=== PATIENT | female | born 1995 | race Caucasian/White ===

== ENCOUNTER 2023-11-07 01:36 | Emergency (ER) | payer OTHER, SELFPAY ==
[2023-11-07 01:47] VITALS: BP 101/53; PULSE 66; RESP 20; TEMP 36.6; O2SAT 98
--- NOTE | 2023-11-07 02:03 | ED_ITS ---
HPI - General Adult General Chief complaint: Abdominal Pain Stated complaint: lower back and pelvic cramping, 17 weeks Time Seen by Provider: 11/07/23 02:02 History of Present Illness HPI narrative: 17 weeks , starting at 2130 had what felt like period cramps in lower ab domen, back, and into groin. Went to sleep and awoke around 0030 with cramping persisting, called nurse line who advised patient to be seen. states she can feel baby move and was reassured by that. denies any bleeding or other symptoms . history of 2 miscarriages and 1 live . no recent sick contacts. 27-year-old woman presenting to the emergency department with concern of period- like cramps occurring in the lower abdomen and seems to radiate into her back, she gestures bilaterally. This began approximately 4 hours ago. She has had no bleeding. She is approximately 17 weeks with a confirmed IUP. Is noting movement. No fever. No unusual discharge. Does have a history of 2 miscarriages and 1 complete with live child. History of D&C. No fever. No dysuria. Further questioning reveals that does struggle historically with constipation. Does have some medications available but appears to have been hesitant to take them. Limited. Reports hard pellets Review of Systems Status of ROS: Reports: 6 or more systems reviewed and unremarkable except as noted in History and below [facility] Medical History Anxiety and depression ?F41.9 - Anxiety disorder, unspecified (ICD-10) ?F32.A - Depression, unspecified (ICD-10) ADHD, adult residual type ?F90.8 - Attention-deficit hyperactivity disorder, other type (ICD-10) Surgical History H/O dilation and curettage ?Z98.890 - Other specified postprocedural states (ICD-10) Social History Smoking Status: Never smoker Do you use any of these nicotine containing products: None How often do you have a drink containing alcohol: never AUDIT-C Alcohol total score: 0 Non-prescribed substance use: denies use service: No Exam Narrative: Exam Narrative: Pleasant. Directed communication. Presents quite calm but I think also understandably anxious. Breathing easily. Lungs are clear. Heart in regular rate and rhythm. Abdomen is soft with present bowel sounds. Full and generally uncomfortable through the low abdomen. No peritoneal signs. Some flank discomfort though I think this is more related to underlying sensitivity. Extremities are well perfused without edema. Const: Vital Signs, click to edit/add: Vital Signs - 24 hr 11/07/23 01:47 Temperature 97.8 F Pulse Rate [Right Pulse Oximeter] 66 Respiratory Rate 20 Blood Pressure [Le ft Upper Arm] 101/53 L Pulse Oximetry 98 Oxygen Delivery Me thod Room Air Documenting provider has reviewed patient's vital signs: yes Course Vital Signs Vital signs: Initial Vital Signs Temperature 97.8 F 11/07/23 01:47 Temperature Source Temporal Artery Scan 11/07/23 01:47 Pulse Rate 66 11/07/23 01:47 Pulse Rhythm Regular 11/07/23 01:47 Pulse Strength 3+ Normal 11/07/23 01:47 Respiratory Rate 20 11/07/23 01:47 Blood Pressure 101/53 L 11/07/23 01:47 Blood Pressure Mean 69 L 11/07/23 01:47 Blood Pressure Position Sitting 11/07/23 01:47 Pulse Oximetry 98 11/07/23 01:47 Oxygen Delivery Method Room Air 11/07/23 01:47 Vital Signs Temperature 97.8 F 11/07/23 01:47 Pulse Rate 66 11/07/23 01:47 Respiratory Rate 20 11/07/23 01:47 Blood Pressure 101/53 L 11/07/23 01:47 Pulse Oximetry 98 11/07/23 01:47 Oxygen Delivery Method Room Air 11/07/23 01:47 Temperature 97.8 F 11/07/23 01:47 Pulse Rate 66 11/07/23 01:47 Respiratory Rate 20 11/07/23 01:47 Blood Pressure 101/53 L 11/07/23 01:47 Pulse Oximetry 98 11/07/23 01:47 Oxygen Delivery Method Room Air 11/07/23 01:47 Medications Administered Medications: Discontinued Medications Generic Name Dose Route Start Last Admin Trade Name Freq PRN Reason Stop Dose Admin Glycerin 1 supp 11/07/23 03:28 11/07/23 03:39 Glycerin Supp (Adult) MD 11/07/23 03:29 Not Given ONCE ONE Medical Decision Making MDM Narrative Medical decision making narrative: Certainly could represent urinary tract infection. Does not seem to be consistent with miscarriage. Constipation with intestinal colic is definitely in differential. Symptoms not significant enough I think for ureteral stone/colic. Exam and story inconsistent I think with appendicitis. At point would check urinalysis. Ultrasound is not in house at the moment but I did offer to place bedside ultrasound for point of care evaluation. I think this could also be emotionally reassuring. Urinalysis not inconsistent with . Would wait for culture for treatment. I return with ultrasound for point of care analysis. Assess what appears to be appropriately sized fetus. Very active. Posterior good-size placenta. This all appears to be reassuring. Discussed treatment for constipation. Due to time of night/morning sent with suppository and enema. See patient discharge plan Lab Data Lab results reviewed: Yes I reviewed the patient's lab results Labs: Lab Results 11/07/23 Range/Units 02:18 Urine Color Yellow (Yellow) Urine Appearance Clear (Clear) Urine pH 6.0 (5.0-8.5) Ur Specific [place] 1.020 (1.000-1.030) Urine Protein Negative (Negative) Urine Glucose (UA) Negative (Negative) Urine Ketones Negative (Negative) Urine Blood Negative (Negative) Urine Nitrite Negative (Negative) Urine Bilirubin Negative (Negative) Urine Urobilinogen 0.2 (0.2-1.0) Ur Leukocyte Esterase 1+ A (Negative) Urine RBC 2-5 A (0-2) Urine WBC 5-10 A (0-5) Urine WBC Clumps None (None) Ur Squamous Epith Cells Few (None-Few) Amorphous Sediment Few A (None) Urine Bacteria Few A (None) Discharge Plan Discharge Clinical Impression: Abdominal pain during , Constipation Patient Disposition: Home, Self-Care Condition: Improved Additional Instructions: Continue to focus on hydration. I would consider taking your MiraLax (or equivalent) dosed 3 doses by noon, each in 8-12 oz of liquid. Or you can spread those doses out over the course of the day. I would continue this treatment for 10-14 days adjusting to stool consistency. I suppose you could take docusate sodium regularly instead after that 1st week if you prefer I think it would be a good idea for you to place a suppository yet overnight and following that with an enema in the morning. Can repeat the enema in an hour if no good result. Be seen/return for marked increase in persistent pain or pain that starts to seem like contractions of course, bleeding, repeated vomiting, fever. As you know, a urine culture is pending here. I would wait to treat for urinary tract infection pending convincing evidence in urine culture or increasing urinary tract type symptoms seeing you. Follow Up/Referrals: Provider,Not a Local [Primary Care Provider] - Stand Alone Forms: [employer] Info Instructions
[2023-11-07 03:03] LABS: Appearance Urine Clear (Clear); Bilirubin Urine Negative (Negative); Blood Urine Negative (Negative); Color Urine Yellow (Yellow); Glucose Urine Negative (Negative); Ketones Urine Negative (Negative); Leukocyte Esterase Urine 1+ (Negative); Nitrite Urine Negative (Negative); Protein Urine Negative (Negative); Urobilinogen Urine 0.2 (0.2-1.0)
[2023-11-07 03:09] LABS: Amorphous Sediment Urine Few; Bacteria Urine Few; Squamous Epithelial Cell Urine Few (None-Few)
--- NOTE | 2023-11-07 03:39 | PC.NURSE ---
glycerin suppository sent home with patient per protocol, see EMAR for charting
--- NOTE | 2023-11-07 03:49 | PC.NURSE ---
fleets enema sent home with patient per MD instructions, patient verbalized understanding of use. DC instructions gone over with patient and she has no further questions. patient DC ambulatory with pain controlled. all belongings sent home with patient
== END 2023-11-07 03:53 | disposition home or self-care (01) ==
PROVIDERS: Emergency Provider Family Medicine
DX: R10.30 Lower abdominal pain, unspecified (principal); K59.00 Constipation, unspecified; Z3A.17 17 weeks gestation of pregnancy
CPT/HCPCS: 81001; 87086; 99283; 99284

== ENCOUNTER 2024-11-25 16:49 | Emergency (ER) | payer OTHER, SELFPAY ==
--- OUTSIDE RECORDS SUMMARY | 2024-11-25 16:52 | XMS_ITS | Clinical Summary ---
Author Organization [facility] Address [address] [address] Care Team Providers Care Anthropological Linguist Name Role Phone Rick Correia MD Primary Care Provider [phone] Source Comments You are receiving this document as you are listed as the primary care provider,follow-up provider, or the patient has been referred to you for consultation.This is in compliance with the Medicare and[facility] E[facility] Incentive [facility],which states Providers who transition their patient to another setting of careor provider of care or refers their patient to another provider of care shouldprovide summary care record for each transition of care or referral. [employer] Allergies No known active allergies Medications Medication Sig Dispensed Refills Start Date End Date Status drug not in computerIndicatio ns:Lactating mother Breast pump for home use. 1 Each 4 Active escitalopram oxalate (LEXAPRO) 20 MG tabletIndications :Anxiety (HRC) Take 1 Tablet (20 mg) by mouth daily. 90 Tablet 1 4 Active busPIRone (BUSPAR) 5 MG tabletIndications :Anxiety (HRC) Take 1 Tablet (5 mg) by mouth two times a day. 180 Tablet 1 4 Active VYVANSE 30 MG capsuleIndication s:Attention deficit hyperactivity disorder (ADHD), combined type, mild (HRC) Take 1 Capsule (30 mg) by mouth daily. Brand Name 30 Capsule 5 Active lisdexamfetamine (VYVANSE) 30 MG capsuleIndication s:Attention deficit hyperactivity disorder (ADHD), combined type, mild (HRC) Take 1 Capsule (30 mg) by mouth daily. 30 Capsule 4 11/20/19 25 Discontinued(*M ed change OR same med OR reorder, new dose/directions ) lisdexamfetamine (VYVANSE) 30 MG capsuleIndication s:Attention deficit hyperactivity disorder (ADHD), combined type, mild (HRC) Take 1 Capsule (30 mg) by mouth every morning. Appointment due with Dr. New, please call [phone] to schedule a visit for refills in future. 30 Capsule 5 11/23/19 25 Discontinued lisdexamfetamine (VYVANSE) 30 MG capsuleIndication s:Attention deficit hyperactivity disorder (ADHD), combined type, mild (HRC) Take 1 Capsule (30 mg) by mouth daily. Brand Name 30 Capsule 5 11/23/19 25 Discontinued Active Problems Problem Noted Date Diagnosed Date Mood disorder 09/14/2024 Attention deficit hyperactiv ity disorder (ADHD), combined type, mild 09/14/2024 Adjustment disorder 09/14/2024 Self-excoriation disorder 09/14/2024 Irregular bowel habits 09/12/2024 Encounter for supervision of normal in multigravida 11/19/2023 Migraine with aura and witho ut status migrainosus, not intractable 12/07/2022 History of recurrent miscarriages 10/22/2021 Anxiety 10/22/2021 Resolved Problems Problem Noted Date Diagnosed Date Resolved Date Excessive weight gain affecting 03/12/2022 11/19/2023 Careplan: [facility] 01/09/2022 04/07/2022 Overview (01/09/2022): This patient is enrolled in the [facility] Program. The program provides patients with support, education, referrals and resources during their . Reason for enrollment: Mental health resources as needed For more information, please contact Sahra Llanos, [facility] Specialist, at [phone]. Supervision of high-risk 10/22/2021 11/19/2023 Blood type A+ 10/22/2021 11/03/2023 Heartburn 10/22/2021 11/19/2023 Encounters Date Type Department Care Team Description 11/08/2024 Notes/Orders [place] [address] [facility] [address] [place] [phone] Imani Hollis PA-C Encounter for screening for other disorder (Primary Dx) 09/12/2024 8:03 AM DIRECTOR OF REGULATORY AFFAIRS - 09/12/2024 11:59 PM DIRECTOR OF REGULATORY AFFAIRS Hospital Encounter Gastroenterology Procedures at [facility] [address] [address] [place] [address] Genna Fair APRN, CNP Quinn, Kevin P, MD Irregular bowel habits (Primary Dx) Discharge Disposition: Home 09/08/2024 1:50 PM DIRECTOR OF REGULATORY AFFAIRS Lab Visit [place] [facility] [address] [place] [phone] Dizziness; Irregular bowel habits 09/08/2024 1:00 PM DIRECTOR OF REGULATORY AFFAIRS Office Visit [place] [address] [facility] [address] [place] [phone] Genna Fair APRN, MANAGER [employer]ARD[employer] Acute bilateral low back pain without sciatica (Primary Dx); Umbilical hernia without obstruction or gangrene; Bilateral hip pain; Dizziness; Irregular bowel habits 09/08/2024 Notes/Orders Dig[facility] Care at [facility] at [address] [place] [address] Jimmy Collier MD 09/08/2024 E-Visit Endoscopy at [address] [place] [address] Mychart, Generic Provider from Last 3 Months Immunizations Name Administration Dates Next Due Influenza (Flucelvax), Preserv Free QIV 12/10/19 24 Influenza IIV4 (Quadrivalent) 0.5mL (71883) 04/2023,10/21/2021 Influenza ccIIV3 6 months+ (Flucelvax) 4 Moderna Monovalent 12+ 11/08/2021 Tdap 02/04/2024,12/17/2021 Family History Medical History Relation Name Comments Depression Father Heart Disease Father Hypertension Father Mental Disorder Father Stroke Father Depression Mother Heart Disease Mother Mental Disorder Mother Stroke Mother uterine Mother uterine bleedin g had to have hysterectomy Anxiety Brother 1 older of the brothers Depression Brother 1 older of the brothers Arthritis Maternal Grandmother COPD Maternal Grandmother Cancer Maternal Grandmother Depression Maternal Grandmother disc Maternal Grandmother digenar tive disc Alcohol Abuse Paternal Grandfather COPD Paternal Grandfather Heart Disease Paternal Grandfather Relation Name Status Comments Father Alive Mother Alive Brother 1 older of the brothers Alive Brother 2 younger of the brothers Alive Brother 3 Maternal Grandfather Maternal Grandmother Paternal Grandfather Alive Paternal Grandmother Alive Social History Tobacco Use Types Packs/Day Years Used Date Smoking Tobacco: Never Passive Smoke Exposure: Never Smokeless Tobacco: Never Tobacco Cessation:Counseling Given: Not Answered Alcohol Use Standard Drinks/Week Comments Yes 0 (1 standard drink = 0.6 oz pur e alcohol) occ PHQ-2 Answer Date Recorded PHQ-2 Score 2 10/19/2024 Depression Answer Date Recor ded Last EPDS Total Score 5 11/08/2024 Last EPDS Self Harm Result 0-->never 11/08 Sex and Gender Information Value Date Recorded Sex Assigned at Not on file Gender Identity Not on file Sexual Orientation Not on file Last Filed Vital Signs Vital Sign Reading Time Taken Comments Blood Pressure 105/60 09/12/2024 9:30 AM DIRECTOR OF REGULATORY AFFAIRS Pulse 50 09/12/2024 9:40 AM DIRECTOR OF REGULATORY AFFAIRS Temperature 36.4 C (97.6 F) 12/07/2022 3:20 PM DIRECTOR OF REGULATORY AFFAIRS Respiratory Rate 16 09/12/2024 9:40 AM DIRECTOR OF REGULATORY AFFAIRS Oxygen Saturation 99% 09/12/2024 9:40 AM DIRECTOR OF REGULATORY AFFAIRS Inhaled Oxygen Concentration - - Weight 54.4 kg (120 lb) 09/12/2024 8:09 AM DIRECTOR OF REGULATORY AFFAIRS Height 154.9 cm (5' 1) 09/12/2024 8:09 AM DIRECTOR OF REGULATORY AFFAIRS Body Mass Index 22.67 09/12/2024 8:09 AM DIRECTOR OF REGULATORY AFFAIRS Plan of Treatment Health Maintenance Due Date Last Done Comments Adult Preventive Visit 2013 HepB (1) 2014 COVID-19 Vaccine ( season) 2024 11/08/2021 Cervical Cancer Screening 05/12/2025 05/12/2022 DTaP/Tdap/Td (3 - Tdap) 02/03/2034 02/04/2024, 12/17 Zoster/Shingles (1 of 2) 2045 Chlamydia Discontinued 10/21/2021 HIV Screening (Preventive Services) Completed 01/14/2024, 08/27/2021 Hep C Screening (Preventive Services) Completed 01/14/2024, 10/21/2021 Influenza Completed 09/08/2024, 07/2024, 12/07/2022, Additional history exists HPV Vaccine Aged Out No longer eligi ble based on patient's age to complete this topic HepA Aged Out No longer eligi ble based on patient's age to complete this topic Hib Aged Out No longer eligi ble based on patient's age to complete this topic IPV (Polio) Aged Out No longer eligi ble based on patient's age to complete this topic MCV4 Aged Out No longer eligi ble based on patient's age to complete this topic Pneumococcal Aged Out No longer eligi ble based on patient's age to complete this topic Procedures Procedure Name Priority Date/Time Associated Diagnosis Comments SURGICAL PATHOLOGY, GI Routine 4 9:01 AM DIRECTOR OF REGULATORY AFFAIRS Irregular bowel habits COLONOSCOPY DIAGNOSTIC Routine 4 8:18 AM DIRECTOR OF REGULATORY AFFAIRS Irregular bowel habits POCT URINE Routine 09/12/2024 8:16 AM DIRECTOR OF REGULATORY AFFAIRS Irregular bowel habits COMPREHENSIVE METABOLIC PANEL Routine 09/08/2024 1:36 PM DIRECTOR OF REGULATORY AFFAIRS Irregular bowel habits TISSUE TRANSGLUTAMINASE AB IGA Routine 09/08/2024 1:36 PM DIRECTOR OF REGULATORY AFFAIRS Irregular bowel habits TSH, SENSITIVE Routine 09/08/2024 1:36 PM DIRECTOR OF REGULATORY AFFAIRS Dizziness COMPLETE BLOOD COUNT-NO DIFF Routine 09/08/2024 1:36 PM DIRECTOR OF REGULATORY AFFAIRS Dizziness HIV 1/2 AG/AB 4TH GEN Routine 01/14/2024 2:13 PM CDT Supervision of high risk in second trimester HEPATITIS C ANTIBODY, WITH REFLEX Routine 01/14/2024 2:13 PM CDT Supervision of high risk in second trimester PAP TEST Routine 05/12/2022 10:38 AM CDT Screening for malignant neoplasm of cervix examination following vaginal delivery CHLAMYDIA & GC, URINE (14 YEARS AND OLDER) Routine 10/21/2021 12:45 PM DIRECTOR OF REGULATORY AFFAIRS Supervision of high risk in second trimester History of recurrent miscarriages from Last 3 Months or Most Recently Relevant to Health Maintenance Results * Surgical Path - GI (09/12/2024 9:01 AM DIRECTOR OF REGULATORY AFFAIRS) Case Report Surgical Pathology Case: [id number] Authorizing Provider: Jimmy Collier MD Collected: 09/12/2024 0901 Ordering Location: Gastroenterology Received: 09/12/2024 1620 Procedures at [facility] [address] [facility] Pathologist: Petr Driscoll MD Specimen: Colon, random 09/18/2024 2:24 PM DIRECTOR OF REGULATORY AFFAIRS [facility] FINAL DIAGNOSIS A. Colon, random, biopsy: No diagnostic abnormality 09/18/2024 2:24 PM DIRECTOR OF REGULATORY AFFAIRS [facility] Clinical Information Irregular bowel habits 09/18/2024 2:24 PM DIRECTOR OF REGULATORY AFFAIRS [facility] Microscopic Description Microscopic examination is performed. 09/18/2024 2:24 PM DIRECTOR OF REGULATORY AFFAIRS [facility] Gross Description A: The specimen is received in formalin and labeled with the patient's name and Colon, random. The specimen consists of multiple gill-white irregular soft tissue fragments, ranging from 0.1 cm to 0.2 cm. The specimen is filtered and entirely submitted in one cassette. AW 09/18/2024 2:24 PM DIRECTOR OF REGULATORY AFFAIRS [facility] Embedded Images 09/18/2024 2:24 PM DIRECTOR OF REGULATORY AFFAIRS [facility] Tissue COLON STRUCTURE / Unknown 09/12/2024 9:01 AM DIRECTOR OF REGULATORY AFFAIRS 09/12/2024 4:20 PM DIRECTOR OF REGULATORY AFFAIRS Jimmy Collier MD LAB PATHOLOGY [facility] [address] * Colonoscopy Diagnostic (09/12/2024 8:18 AM DIRECTOR OF REGULATORY AFFAIRS) Anatomical Region Laterality Modality Other 09/12/2024 8:18 AM DIRECTOR OF REGULATORY AFFAIRS Narrative 09/12/2024 8:18 AM DIRECTOR OF REGULATORY AFFAIRS Patient Name: Patty Fuentes Procedure Date: 09/12/2024 8:18 AM Date of : 1995 Admit Type: Outpatient Age: 28 Note Status: Finalized Attending MD: Jimmy Collier MD, Procedure: Colonoscopy Indications: Rectal bleeding, Constipation, Diarrhea Providers: Jimmy Collier MD, Ravinder Mckoy Patient Profile: 28 year old woman undergoing evaluation for the above. She goes 5-7 days without a BM, then 1-2 days with diarrhea. This is associated with intermittent rectal bleeding and abdominal cramping. No known family history of colon cancer. Referring MD: Genna Mao Medicines: Midazolam 4 mg IV, Fentanyl 150 micrograms IV, Oxygen 2 L/min Complications: No immediate complications. Estimated blood loss: Minimal. Procedure: After I obtained informed consent, the scope was passed under direct vision. Throughout the procedure, the patient's blood pressure, pulse, and oxygen saturations were monitored continuously. The PCF-H190L Colonoscope was introduced through the anus and advanced to 8 cm into the ileum. The colonoscopy was performed with difficulty due to the patient's excessive discomfort during the procedure. Successful completion of the procedure was aided by increasing the dose of sedation medication. The patient tolerated the procedure fairly well. The quality of the bowel preparation was evaluated using the BBPS (Keller Bowel Preparation Scale) with scores of: Right Colon = 3, Transverse Colon = 3 and Left Colon = 3 (entire mucosa seen well with no residual staining, small fragments of stool or opaque liquid). The total BBPS score equals 9. The terminal ileum, ileocecal valve, appendiceal orifice, and rectum were photographed. Findings: The perianal and digital rectal examinations were normal. The terminal ileum appeared normal. Normal mucosa was found in the entire colon. Biopsies for histology were taken with a cold forceps for evaluation of microscopic colitis. Verification of patient identification for the specimen was done using the patient's name and date. Estimated blood loss was minimal. Non-bleeding internal hemorrhoids were found during retroflexion. The hemorrhoids were mild. The exam was otherwise without abnormality on direct and retroflexion views. Moderate Sedation: Moderate (conscious) sedation was administered by the nurse and supervised by the endoscopist. The following parameters were monitored: oxygen saturation, heart rate, blood pressure, and response to care. Total physician intraservice time was 19 minutes. This time is the duration from the initial medication administration until the orchestra musician assists with initial maneuvers (biopsy / polypectomy / etc.), or if no maneuvers are performed, until the endoscopist leaves the room. Impression: - Internal hemorrhoids are the likely cause for the patient's intermittent rectal bleeding. No other abnormalities noted. Random biopsies obtained to be thorough. However, symptoms are most consistent with chronic constipation (likely constipation-predominant irritable bowel syndrome) with intermittent overflow diarrhea. - The examined portion of the ileum was normal. - Normal mucosa in the entire examined colon. Biopsied. - Non-bleeding internal hemorrhoids. - The examination was otherwise normal on direct and retroflexion views. Recommendation: - Discharge patient to home. - High fiber diet. - Miralax 1 capful (17 grams) in 8 ounces of water PO daily. - Await pathology results. - Repeat colonoscopy at age 45 for screening purposes. - Future colonoscopies should be performed with propofol. - Return to referring provider PRN. - The findings and recommendations were discussed with the patient. Procedure Code(s): --- Professional --- 36980, Colonoscopy, flexible; with biopsy, single or multiple G0500, Moderate sedation services provided by the same physician or other qualified health day care provider performing a gastrointestinal endoscopic service that sedation supports, requiring the presence of an independent trained observer to assist in the monitoring of the patient's level of consciousness and physiological status; initial 15 minutes of intra-service time; patient age 5 years or older (additional time may be reported with 76571, as appropriate) Diagnosis Code(s): --- Professional --- K64.8, Other hemorrhoids K62.5, Hemorrhage of anus and rectum K59.00, Constipation, unspecified R19.7, Diarrhea, unspecified CPT copyright 2021 [employer]. All rights reserved. The codes documented in this report are preliminary and upon supervisor grips review may be revised to meet current compliance requirements. Jimmy Collier MD 09/12/2024 9:14:33 AM Number of Addenda: 0 Note Initiated On: 09/12/2024 8:18 AM Endoscopy Report Procedure Note Jimmy Collier MD - 09/12/2024 Patient Name: Patty Fuentes Procedure Date: 09/12/2024 8:18 AM Date of : 1995 Admit Type: Outpatient Age: 28 Note Status: Finalized Attending MD: Jimmy Collier MD, Procedure: Colonoscopy Indications: Rectal bleeding, Constipation, Diarrhea Providers: Jimmy Collier MD, Ravinder Mckoy Patient Profile: 28 year old woman undergoing evaluation for the above. She goes 5-7 days without a BM, then 1-2 days with diarrhea. This is associated with intermittent rectal bleeding and abdominal cramping. No known family history of colon cancer. Referring MD: Genna Mao Medicines: Midazolam 4 mg IV, Fentanyl 150 micrograms IV, Oxygen 2 L/min Complications: No immediate complications. Estimated blood loss: Minimal. Procedure: After I obtained informed consent, the scope was passed under direct vision. Throughout the procedure, the patient's blood pressure, pulse, and oxygen saturations were monitored continuously. The PCF-H190L Colonoscope was introduced through the anus and advanced to 8 cm into the ileum. The colonoscopy was performed with difficulty due to the patient's excessive discomfort during the procedure. Successful completion of the procedure was aided by increasing the dose of sedation medication. The patient tolerated the procedure fairly well. The quality of the bowel preparation was evaluated using the BBPS (Keller Bowel Preparation Scale) with scores of: Right Colon = 3, Transverse Colon = 3 and Left Colon = 3 (entire mucosa seen well with no residual staining, small fragments of stool or opaque liquid). The total BBPS score equals 9. The terminal ileum, ileocecal valve, appendiceal orifice, and rectum were photographed. Findings: The perianal and digital rectal examinations were normal. The terminal ileum appeared normal. Normal mucosa was found in the entire colon. Biopsies for histology were taken with a cold forceps for evaluation of microscopic colitis. Verification of patient identification for the specimen was done using the patient's name and date. Estimated blood loss was minimal. Non-bleeding internal hemorrhoids were found during retroflexion. The hemorrhoids were mild. The exam was otherwise without abnormality on direct and retroflexion views. Moderate Sedation: Moderate (conscious) sedation was administered by the nurse and supervised by the endoscopist. The following parameters were monitored: oxygen saturation, heart rate, blood pressure, and response to care. Total physician intraservice time was 19 minutes. This time is the duration from the initial medication administration until the orchestra musician assists with initial maneuvers (biopsy / polypectomy / etc.), or if no maneuvers are performed, until the endoscopist leaves the room. Impression: - Internal hemorrhoids are the likely cause for the patient's intermittent rectal bleeding. No other abnormalities noted. Random biopsies obtained to be thorough. However, symptoms are most consistent with chronic constipation (likely constipation-predominant irritable bowel syndrome) with intermittent overflow diarrhea. - The examined portion of the ileum was normal. - Normal mucosa in the entire examined colon. Biopsied. - Non-bleeding internal hemorrhoids. - The examination was otherwise normal on direct and retroflexion views. Recommendation: - Discharge patient to home. - High fiber diet. - Miralax 1 capful (17 grams) in 8 ounces of water PO daily. - Await pathology results. - Repeat colonoscopy at age 45 for screening purposes. - Future colonoscopies should be performed with propofol. - Return to referring provider PRN. - The findings and recommendations were discussed with the patient. Procedure Code(s): --- Professional --- 22091, Colonoscopy, flexible; with biopsy, single or multiple G0500, Moderate sedation services provided by the same physician or other qualified health day care provider performing a gastrointestinal endoscopic service that sedation supports, requiring the presence of an independent trained observer to assist in the monitoring of the patient's level of consciousness and physiological status; initial 15 minutes of intra-service time; patient age 5 years or older (additional time may be reported with 15725, as appropriate) Diagnosis Code(s): --- Professional --- K64.8, Other hemorrhoids K62.5, Hemorrhage of anus and rectum K59.00, Constipation, unspecified R19.7, Diarrhea, unspecified CPT copyright 2021 [employer]. All rights reserved. The codes documented in this report are preliminary and upon supervisor grips review may be revised to meet current compliance requirements. Jimmy Collier MD 09/12/2024 9:14:33 AM Number of Addenda: 0 Note Initiated On: 09/12/2024 8:18 AM Endoscopy Report Genna Fair APRN, CNP ET GI PROCEDURE ORDERABLES * Urine POCT (Unit Collect & Test) (09/12/2024 8:16 AM DIRECTOR OF REGULATORY AFFAIRS) Urine Test - POC Negative Negative POCT Control Line Present, Clear Background - Internal control Yes POCT Cartridge Lot# [id number] POCT Comment:02/06/26 Urine 09/12/2024 8:16 AM DIRECTOR OF REGULATORY AFFAIRS Jimmy Collier MD ET POINT OF CARE JOSSELIN T ENTER/EDIT ORDERABLES POCT * Tissue Transglutaminase Ab IgA (09/08/2024 1:36 PM DIRECTOR OF REGULATORY AFFAIRS) Tissue Transglutaminase Antibody, IgA 0.3 0.0 - 6.9 U/mL 09/12/2024 10:04 AM DIRECTOR OF REGULATORY AFFAIRS [facility] Tissue Transglutaminase Antibody, IgA Interpretation Negative Negative 09/12/2024 10:04 AM DIRECTOR OF REGULATORY AFFAIRS [facility] Blood Venipuncture / Unknown 09/08/2024 1:36 PM DIRECTOR OF REGULATORY AFFAIRS 09/08/2024 1:36 PM DIRECTOR OF REGULATORY AFFAIRS Genna Fair APRN, CNP LAB_1 [facility] [address] * (ABNORMAL) Comp Metabolic Panel (09/08/2024 1:36 PM DIRECTOR OF REGULATORY AFFAIRS) Sodium 141 136 - 145 mmol/L 09/08/2024 5:26 PM DIRECTOR OF REGULATORY AFFAIRS [facility] Potassium 3.6 3.5 - 5.1 mmol/L 09/08/2024 5:26 PM [facility] Chloride 107 98 - 109 mmol/L 09/08/2024 5:26 PM [facility] CO2 24 20 - 29 mmol/L 09/08/2024 5:26 PM [facility] Anion Gap 10 6 - 16 mmol/L 09/08/2024 5:26 PM [facility] Calcium 9.6 8.4 - 10.4 mg/dL 09/08/2024 5:26 PM [facility] BUN 9 7 - 26 mg/dL 09/08/2024 5:26 PM [facility] Creatinine 0.69 0.55 - 1.02 mg/dL 09/08/2024 5:26 PM [facility] Alkaline Phosphatase 61 40 - 150 U/L 09/08/2024 5:26 PM [facility] AST (SGOT) 20 10 - 40 U/L 09/08/2024 5:26 PM [facility] ALT (SGPT) 14 <=55 U/L 09/08/2024 5:26 PM [facility] Bilirubin, Total 0.5 0.2 - 1.2 mg/dL 09/08/2024 5:26 PM [facility] Protein, Total 7.2 6.4 - 8.3 g/dL 09/08/2024 5:26 PM [facility] Albumin 4.1 3.5 - 5.0 g/dL 09/08/2024 5:26 PM [facility] Glucose 66(L) 70 - 100 mg/dL 09/08/2024 5:26 PM [facility] Comment:The given reference range is for the fasting state. Non-fasting reference range for glucose is 70 - 180 mg/dL. GFR, Estimated >60 >60 mL/min/1.7 3m2 09/08/2024 5:26 PM [facility] Hours Fasting 0.0 8 - 12 Hours 09/08/2024 5:26 PM [facility] Blood Venipuncture / Unknown 09/08/2024 1:36 PM DIRECTOR OF REGULATORY AFFAIRS 09/08/2024 1:36 PM [facility] Genna Fair DEPARTMENT OF NATURAL RESOURCES OFFICER, MANAGER GARDEN LAB_1 [facility] [address] [place] [phone] * TSH (09/08/2024 1:36 PM DIRECTOR OF REGULATORY AFFAIRS) Pathologist [facility] TSH, Sensitive 0.40 0.30 - 4.50 uIU/mL 09/08/2024 6:47 PM DIRECTOR OF REGULATORY AFFAIRS [facility] Blood Venipuncture / Unknown 09/08/2024 1:36 PM DIRECTOR OF REGULATORY AFFAIRS 09/08/2024 1:36 PM DIRECTOR OF REGULATORY AFFAIRS Genna Fair APRN, MANAGER [employer]ARD[employer] LAB_1 [facility] [address] [place], [place] [id number] [place], [place] [address] * Complete Blood Count-No Diff (09/08/2024 1:36 PM DIRECTOR OF REGULATORY AFFAIRS) [facility] WBC 6.2 3.5 - 10.5 x10(9)/L 09/08/2024 1:44 PM [facility] RBC 4.67 3.90 - 5.03 x10(12)/L 09/08/2024 1:44 PM [facility] Hemoglobin 14.0 12.0 - 15.5 g/dL 09/08/2024 1:44 PM [facility] HCT 41.1 34.9 - 44.5 % 09/08/2024 1:44 PM [facility] MCV 88.0 80.0 - 100.0 fL 09/08/2024 1:44 PM [facility] MCH 30.0 27.6 - 33.3 pg 09/08/2024 1:44 PM [facility] MCHC 34.1 31.5 - 35.2 g/dL 09/08/2024 1:44 PM [facility] RDW 11.9 11.9 - 15.5 % 09/08/2024 1:44 PM [facility] Platelets 192 150 - 450 x10(9)/L 09/08/2024 1:44 PM [facility] Blood Venipuncture / Unknown 09/08/2024 1:36 PM DIRECTOR OF REGULATORY AFFAIRS 09/08/2024 1:36 PM DIRECTOR OF REGULATORY AFFAIRS Genna Fair APRN, CNP LAB_1 Performing Organization Address City/Va Hospital/ZIP Co de Phone Number [facility] [address] [place] [address] * HIV 1/2 Ag/Ab 4th Generation (01/14/2024 2:13 PM CDT) HIV 1/2 Antigen/Antib alba (4th generation) Negative (Non Reactive) Negative (Non Reactive) 01/14/2024 8:37 PM CDT [facility] Comment:HIV-1 p24 Antigen an d HIV-1/HIV-2 Antibody not detected Blood Venipuncture / Unknown 01/14/2024 2:13 PM CDT 01/14/2024 2:13 PM CDT Zaynab Redding MD LAB_1 Performing Organization Address [facility] Hospital/[facility] Co de Phone Number [facility] [address] * Hepatitis C Antibody, with Reflex (01/14/2024 2:13 PM CDT) Hepatitis C Antibody Negative (Non Reactive) Negative (Non Reactive) 01/14/2024 8:37 PM CDT [facility] Comment:Antibodies to HCV no t detected. Does not exclude the possiblity of exposure to HCV. Blood Venipuncture / Unknown 01/14/2024 2:13 PM CDT 01/14/2024 2:13 PM CDT Zaynab Redding MD LAB_1 Performing Organization Address City/Va Hospital/ZIP Co de Phone Number [facility] [address] [employer] [address] * PAP Test (05/12/2022 10:38 AM CDT) Case Report Pap Case: [id number] Authorizing Provider: Josey Richard MD Collected: 05/12/2022 1038 Ordering Location: [place] [address] Received: 05/12/2022 1255 Obstetrics/Gynec ology First Screen: Meme Connor CT (ASCP) Specimen: Pap Test, Routine, Cervix/Endocervix 05/19/2022 2:27 PM CDT [facility] Pap Specimen Adequacy Satisfactory for evaluation, endocervical/machado sformation zone component present. 05/19/2022 2:27 PM CDT [facility] Pap Interpretation (NILM) Negative for intraepithelial lesion or malignancy. 05/19/2022 2:27 PM CDT [facility] Pap Disclaimer The Pap test is a screening test designed to aid in the detection of cervical cancer and its precursor lesions. It is not a diagnostic procedure and should not be used as the sole means of detecting cervical cancer. Both false-positive and false-negative results may occur. 05/19/2022 2:27 PM CDT [facility] Gross Description The specimen is received in SurePath fixative and properly labeled. 1 Pap-stained SurePath slide is prepared. 05/19/2022 2:27 PM CDT [facility] Embedded Images 2:27 PM CDT [facility] Other Specimen Type ENTIRE ENDOCERVIX / Unknown 05/12/2022 10:38 AM CDT 05/12/2022 12:55 PM CDT Comment:LMP: Patient's last menstrual period was 06/17/2021 (exact date). Josey Richard MD LAB PATHOLOGY Performing Organization Address City/State/[facility] de Phone Number [facility] [address] * Chlamydia and GC, Urine STD (10/21/2021 12:45 PM DIRECTOR OF REGULATORY AFFAIRS) Chlamydia Trachomatis STD Not Detected Not Detected 10/22/2021 9:06 AM DIRECTOR OF REGULATORY AFFAIRS [facility] N. gonorrhoeae STD Not Detected Not Detected 10/22/2021 9:06 AM DIRECTOR OF REGULATORY AFFAIRS [facility] Urine STD (Urine for STD) Non-blood Collection / Unknown 10/21/2021 12:45 PM DIRECTOR OF REGULATORY AFFAIRS 10/21/2021 12:45 PM DIRECTOR OF REGULATORY AFFAIRS Narrative [facility] - 10/22/2021 9:06 AM DIRECTOR OF REGULATORY AFFAIRS Test performed by Gel Coater Mediated Amplification (TMA). Josey Richard MD LAB_1 [facility] [address] [address], [place] [phone] from Last 3 Months or Most Recently Relevant to Health Maintenance Care Teams Anthropological Linguist Relationship Specialty Start Date End Date Rick Correia MD [address] [place] [address] PCP - General Internal Medicine 10/21/21
--- OUTSIDE RECORDS SUMMARY | 2024-11-25 16:52 | XMS_ITS ---
Author Organization [facility] Address [address] [place] [address] Care Team Providers Care Stars Coordinator Name Role Phone Rick Correia Primary Care Provider Daisy Malonye [phone] Allergies No Known Allergies REASON FOR VISIT 16wks, card given., mc Medications Medication SIG (Take, Route, Frequency, Duration) Notes Start Date End Date Status Active Lexapro 20 MG 1 tablet Orally Once a day Active Melatonin Active Social History Tobacco Use: Social History Observation Description Date Details (start date - stop date) Never Smoker NA - NA Tobacco Use/Smoking Question Answer Notes Are you a nonsmoker Alcohol Screen (Audit-C) Question Answer Notes Did you have a drink containing alcohol in the p ast year? Yes Points 0 Interpretation Negative Encounters Encounter Location Date Provider Diagnosis [facility] [address] [place] [address] 10/29/2023 Daisy Oakley Plan Of Treatment No Information Progress Notes * VALDEMARPatty FLORES ADOB: [birth year] (28 yo F)Acc No.[id number]:10/29/2023 Progress Note Patient: Patty ZACARIAS Provider: Norma Oakley CNM :1995 A ge:27 Y S ex:Female Date:10/29/2023 Address:[facility] [place] Pcp:Rick Correia Subjective: * Chief Complaints: * 1 . 16wks. 2. card given.. 3. Mc. * Medical History: M igraines, Depression/Anxiety, Ovarian Cysts, Uterine Fibroids, : yes. * Registered Nurse Supervisor History: D ate of Last Period: C urrently 07/09/23. B irth Control: C urrently . S exual Activity C urrently sexually active. S exually Tranmitted Disease (STD)?None. A bnormal Pap Smear N ever Had One. * OB History: G PAL: G [id number]. P regnancy # 1: 2 020, Miscarriage (SAB), dilatation and curettage (D/C), 8wks. P regnancy # 2: 2 021, 6wks, Miscarriage (SAB), dilatation and curettage (D/C). P regnancy # 3: 2 022, Female, normal spontaneous vaginal delivery (), 39wks. P regnancy # 4: 2 023, currently . G P G ravida: 0 07/09/2023. * Surgical History: T onsils Removal 2001, D&C 2019, D&C 2020, [place] Tooth Removal 2022. * Hospitalization/Major Diagno stic Procedure: D enies Past Hospitalization. * Family History: M other: diagnosed with Heart Disease. F ather: diagnosed with Hypertension, Heart Disease. * Social History: T obacco Use: T obacco Use/Smoking A re you a n onsmoker. D rugs/Alcohol: D rugs H ave you used drugs other than those for medical reasons in the past 12 months?? None.. A lcohol Screen (Audit-C) D id you have a drink containing alcohol in the past year? Y es, P oints 0 , I nterpretation N egative. C affeine I ntake: 1 soda daily.. D o you smoke marijuana?: Denies. Do you drink alcohol?: 1-2x month.. * Medications: T aking Melatonin , Taking , Taking Lexapro 20 MG Tablet 1 tablet Orally Once a day , Medication List reviewed and reconciled with the patient * Allergies: N .K.D.A. Objective: * Vitals: Assessment: Plan: * Treatment: * Preventive Medicine: YOUR PREVENTIVE WELLNESS PLAN: B reast Cancer Screening (Mammogram): M y last mammogram was done on: N ever. C akashal Cancer Screening (Pap Smear): M y last Pap smear was done on: 0 11/01/2021 Normal, per pt. O steoporosis Screening (Bone Density Measurement): M y last bone density was done on: N ever. C olorectal Cancer Screening: L ast Done Colonoscopy N ever. D epression Screening: S creening for depression was last done on:?09/02/2023. * Images: Billing Information: * Visit Code: * Procedure Codes: * Electronic signature of Maria G Oakley CNM on 11/25/2024 at 04:52 PM CLEAT FEEDER Sign off status: Pending * Provider: Norma Oakley CNM Date: Generated for Deloris powell/Elena/Gianni on: 0 11/25/2024 04:52 PM CLEAT FEEDER
--- OUTSIDE RECORDS SUMMARY | 2024-11-25 16:52 | XMS_ITS | Clinical Summary ---
Author Organization [facility] Address [address] [place] [address] Care Team Providers Care Forestry Aid Technician Name Role Phone Clinic, [facility] Pro vider Allergies No known active allergies Medications escitalopram (LEXAPRO) 10 MG tablet Take 20 mg by mouth daily Active Vit-Fe Fumarate-FA ( MULTIVITAMIN W/IRON) 27-0.8 MG tablet Take 1 tablet by mouth daily Active acetaminophen (TYLENOL) 325 MG tabletIndication s:Vaginal delivery Take 2 tablets (650 mg) by mouth every 6 hours as needed for mild pain or fever 60 tablet 2 Active docusate sodium (COLACE) 100 MG capsuleIndicatio ns:Vaginal delivery Take 1 capsule (100 mg) by mouth 2 times daily as needed for constipation 60 capsule 2 Active ibuprofen (ADVIL/MOTRIN) 800 MG tabletIndication s:Vaginal delivery Take 1 tablet (800 mg) by mouth every 6 hours as needed for other (cramping) 60 tablet 2 Active benzocaine (AMERICAINE) 20 % external aerosolIndicatio ns:Vaginal delivery Apply to perineum as needed for pain 57 g 1 4 Active lanolin ointmentIndicati ons:Vaginal delivery Apply topically every hour as needed for other (sore nipples) 7 g 3 4 Active Active Problems Problem Noted Date Diagnosed Date Vaginal delivery 03/17/2022 Indication for care in labor or delivery 022 Family History Medical History Relation Comments Cerebrovascular Disease Father Heart Disease Father Heart Disease Mother Relation Status Comments Father Mother Social History Tobacco Use Types Packs/Day Years Used Date Smoking Tobacco: Every Day Vaping Device Smokeless Tobacco: Never Tobacco Cessation:Ready to Q uit: Not Asked; Counseling Given: Not Answered Alcohol Use Standard Drinks/Week Comments Not Currently 0 (1 standard drink = 0.6 oz pur e alcohol) PHQ-2 Answer Date Recorded PHQ-2 Score 4 01/09/2022 [place] Depression Scale Answer Date Recorded Last EPDS Total Score Not on file 04/03/2024 The thought of harming myself has occurred to me . 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 Gender Identity Not on file Sexual Orientation Not on file Last Filed Vital Signs Vital Sign Reading Time Taken Comments Blood Pressure 106/47 04/04/2024 8:05 AM CDT Pulse 55 04/04/2024 8:05 AM CDT Temperature 36.3 C (97.3 F) 04/04/2024 8:05 AM CDT Respiratory Rate 16 04/04/2024 8:05 AM CDT Oxygen Saturation 100% 04/02/2024 5:52 PM CDT Inhaled Oxygen Concentration - - Weight 65.2 kg (143 lb 11.8 oz) 024 11:16 AM CDT Height 157.5 cm (5' 2) 04/02/2024 12:4 6 PM CDT Body Mass Index 26.29 04/02/2024 12:46 PM CDT Plan of Treatment Health Maintenance Due Date Last Done Comments ADVANCE CARE PLANNING 1995 ANNUAL REVIEW OF HM ORDERS 1995 NICOTINE/TOBACCO CESSATION COUNSELING Q 1 YR 1995 YEARLY PREVENTIVE VISIT 1998 HEPATITIS C SCREENING 2013 HEPATITIS B IMMUNIZATION (1 of 3 - 19+ 3-dose series) 2014 Pneumococcal Vaccine: Pediatrics (0 to 5 Years) and At-Risk Patients (6 to 49 Years) (1 of 2 - PCV) 2014 COVID-19 Vaccine (2 - 2023-2 5 season) 2024 11/08/2021 INFLUENZA VACCINE (#1) 2024 , 12/07/2022, 10/21/2021 PHQ-2 (once per calendar year) 2024 01/09/2022 PAP 05/12/2025 05/12/2022 DTAP/TDAP/TD IMMUNIZATION (3 - Td or Tdap) 02/03/2034 02/04/2024, 12/17/2021 RSV VACCINE (1 - 1-dose 75+ series) 2070 MENINGITIS IMMUNIZATION Completed 05/21/2014 HIV SCREENING Completed 01/14/2024, 08/27/2021 HPV IMMUNIZATION Aged Out No longer e ligible based on patient's age to complete this topic RSV MONOCLONAL ANTIBODY Aged Out No l onger eligible based on patient's age to complete this topic Procedures Procedure Name Priority Date/Time Associated Diagnosis Comments HIV 1&2 ANTIBODY (EXTERNAL RESULT) Routine 01/14/2024 2:13 PM CDT from Last 3 Months or Most Recently Relevant to Health Maintenance Results * HIV-1 Antibody (External Result) (01/14/2024 2:13 PM CDT) HIV 1&2 Antibody (External) Negative Nonreactive EXTERNAL LAB 01/14/2024 2:13 PM CDT us Patient Reported LAB - HIM EXTERNAL RESULT Final Result EXTERNAL LAB External Lab from Last 3 Months or Most Recently Relevant to Health Maintenance Insurance [facility] WITH BCBS [facility] WITH [facility] Advance Directives For more information, please contact: [phone] * Full Code (Latest Code Status on File) Date Activated Date Inactivated Comments 04/02/2024 1:09 PM 04/04/2024 1:54 PM All basic and advanced life-sustaining interventions are performed as appropriate Question Answer Comments Code status determined by: Discussion with patie nt/ legal decision maker * Full Code Date Activated Date Inactivated Comments 03/15/2022 2:46 AM 03/17/2022 4:57 PM All basic an d advanced life-sustaining interventions are performed as appropriate Question Answer Comments Code status determined by: Discussion with eldae nt/ legal decision maker Care Teams Forestry Aid Technician Relationship Specialty Start Date End Date Clinic, [place] [address] [address] PCP - General 04/03/24
--- OUTSIDE RECORDS SUMMARY | 2024-11-25 16:52 | XMS_ITS | Referral Summary ---
Author Organization [facility] Address [address] [place] [address] Care Team Providers Care Network Support Name Role Phone Clinic, [facility] Pro vider Allergies No known [...] for care in labor or delivery 022 Social History Tobacco Use Types Packs/Day Years Used Date Smoking Tobacco: Every Day Vaping Device Smokeless Tobacco: Never Tobacco Cessation:Ready to Q uit: Not Asked; Counseling Given: Not Answered Alcohol Use Standard Drinks/Week Comments Not Currently 0 (1 standard drink = 0.6 oz pur e alcohol) PHQ-2 Answer Date Recorded PHQ-2 Score 4 01/09/2022 [place] Depression Scale Answer Date Recorded Last EPDS Total Score Not on file 04/03/2024 The thought of harming myself has occurred to me . 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 Gender Identity Not on file Sexual Orientation [...] 04/02/2024 12:46 PM CDT Plan of Treatment Not on file Procedures Procedure Name Priority Date/Time Associated Diagnosis [...] Most Recently Relevant to Health Maintenance Insurance LEEROY Nixon [id number] [facility] WITH [facility] LEEROY Nixon [id number] [facility] WITH [employer] Advance Directives For more information, please contact: [phone] * Full Code (Latest Code Status on File) Date Activated Date Inactivated Comments 04/02/2024 1:09 PM 04/04/2024 1:54 PM All basic and advanced life-sustaining interventions are performed as appropriate Question Answer Comments Code status determined by: Discussion with gomez nt/ legal decision maker * Full Code Date Activated Date Inactivated Comments 03/15/2022 2:46 AM 03/17/2022 4:57 PM All basic an d advanced life-sustaining interventions are performed as appropriate Question Answer Comments Code status determined by: Discussion with gomez nt/ legal decision maker Care Teams Network Support Relationship Specialty Start Date End Date [facility] [place] [facility] [address] [place] [address] PCP - General 04/03/24
--- OUTSIDE RECORDS SUMMARY | 2024-11-25 16:52 | XMS_ITS | Encounter Summary ---
Author Organization [facility] Address [address] [place] [address] Care Team Providers Care Family And Divorce Legal Assistant Name Role Phone Rick Correia MD Primary Care Provider [phone] Encounter Details Date Type Department Care Team (Late st Contact Info) Description 11/08/2024 Notes/Orders [place] [address] [facility] [address] [place] [address] Imani Hollis, LORI [address] [place], [place] [id number] Encounter for screening for other disorder (Primary Dx) Social History Tobacco Use Types Packs/Day Years Used Date Smoking Tobacco: Never Passive Smoke Exposure: Never Smokeless Tobacco: Never Alcohol Use Standard Drinks/Week Comments Yes 0 [...] on file Sexual Orientation Not on file documented as of this encounter Plan of Treatment Not on file documented as of this encounter Visit Diagnoses Diagnosis Encounter for screening for other disorder- Primary documented in this encounter Care Teams Family And Divorce Legal Assistant Relationship Specialty Start Date End Date Rick Correia MD [address] [place] [address] PCP - General Internal Medicine 10/21/21 documented as of this encounter
--- OUTSIDE RECORDS SUMMARY | 2024-11-25 16:52 | XMS_ITS | Patient Health Record ---
Author Organization [facility] Address [address] [place] [address] Care Team Providers Care Dice Dealer Name Role Phone Rick Correia Primary Care Provider Daisy Maloney [phone] Allergies No Known Allergies Reason For Referral No Information Medications Medication SIG (Take, Route, Frequency, Duration) [...] ast year? Yes Points 0 Interpretation Negative Problems Problem Type SNOMED Code ICD Code Onset Dates Problem Status W/U Status Risk Notes Problem Anxiety (85147247) Anxiety (F41.9) Active confirmed Problem First trimester (71157171) Encounter for supervision of normal in multigravida in first trimester (Z34.81) Active confirmed Plan Of Treatment No Information Insurance Providers Payer Name Payer Address Payer Phone Subscriber Number Group Number Insured Name Patient Relationship to Insured Coverage Start Date Coverage End Date [facility] (Ins. Bill) Claims Department [address] [place] [address] [id number] Patty Fuentes Self - patient is the insured Medical (General) History Medical History History ICD Code Migraines Depression/Anxiety Ovarian Cysts Uterine Fibroids Surgical History Surgery Date(Month/Year) Tonsils Removal 2001 D&C 2019 D&C 2020 [place] Tooth Removal 2022
--- OUTSIDE RECORDS SUMMARY | 2024-11-25 16:52 | XMS_ITS ---
Author Organization [facility] Address [address] [place] [address] Care Team Providers Care Assistant Professor Of Radiology Name Role Phone Rick Correia Primary Care Provider Daisy Maloney [phone] REASON FOR VISIT Unable to R/S OBV Encounters Encounter Location Date Provider Diagnosis [address] [place], [place] [id number] 11/23/2023 Daisy Oakley Plan Of Treatment No Information Progress Notes * Patty ENGLE ADOB: [birth year] (28 yo F)Acc No.[id number]:11/23/2023 Patient: Pat DURANDMio Patty Ankit :1995 A ge:27 Y S ex:Female Address:[address] [place] [address] [place] [address] * true * Date: Generated for Deloris powell/Elena/eTransmitting on: 0 11/25/2024 04:51 PM PRODUCE SPECIALIST
--- OUTSIDE RECORDS SUMMARY | 2024-11-25 16:52 | XMS_ITS | Encounter Summary ---
Author Organization [facility] Address [address], [place] [address] Care Team Providers Care Communication Engineer Name Role Phone Rick Correia MD Primary Care Provider [phone] Encounter Details Date Type Department Care Team (Late st Contact Info) Description 09/08/2024 E-Visit Endoscopy at [facility] at [address] [place] [address] Mychart, [place] [address] Social History Tobacco Use Types Packs/Day Years Used Date Smoking Tobacco: Never Passive Smoke Exposure: Never Smokeless Tobacco: Never Alcohol Use Standard Drinks/Week Comments Yes 0 (1 standard drink = 0.6 oz pur e alcohol) occ PHQ-2 Answer Date Recorded PHQ-2 Score 3 09/14/2024 Depression Answer Date Recor ded Last EPDS Total Score 11 06/28/2024 Last EPDS Self Harm Result 0-->never 06/28 Sex and Gender Information Value Date Recorded Sex Assigned at Not on file Gender Identity Not on file Sexual Orientation Not on file documented as of this encounter Plan of Treatment Not on file documented as of this encounter Visit Diagnoses Not on filedocumented in this encounter Care Teams Communication Engineer Relationship Specialty Start Date End Date Rick Correia MD [address] [place] [address] PCP - General Internal Medicine 10/21/21 documented as of this encounter
--- OUTSIDE RECORDS SUMMARY | 2024-11-25 16:52 | XMS_ITS | Encounter Summary ---
Author Organization [facility] Address [address] [place] [address] Care Team Providers Care Welcome Center Attendant Name Role Phone No Ref-Primary, Physician Primary Care Provider [facility] Primary Care Pro vider Encounter Details Date Type Department Care Team (Late st Contact Info) Description 12/15/2021 Documentation Only INTERFACED REPORT Unknown, Provider Social History Tobacco Use Types Packs/Day Years Used Date Smoking Tobacco: Never Alcohol Use Standard Drinks/Week Comments Not Currently 0 (1 standard drink = 0.6 oz pur e alcohol) Comments Unknown Sex and Gender Information Value Date Recorded Sex Assigned at Not on file Legal Sex Female 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 No / Unsure 12/15/2021 9:23 AM CERTIFIED REGISTERED LOCKSMITH documented as of this encounter Plan of Treatment Not on file documented as of this encounter Visit Diagnoses Not on filedocumented in this encounter Care Teams Welcome Center Attendant Relationship Specialty Start Date End Date No Ref-Primary, Physician PCP - General 12/15/21 04/02/24 [facility] [address] [place] [address] PCP - General 04/03/24 documented as of this encounter
--- OUTSIDE RECORDS SUMMARY | 2024-11-25 16:52 | XMS_ITS ---
Author Organization [facility] Address [address] [place] [address] Care Team Providers Care Caterer'S Aide Name Role Phone Rick Correia Primary Care Provider Daisy Maloney Unavailable [phone] Araseli Slade Unavailable [phone] REASON FOR VISIT 16 weeks Encounters Encounter Location Date Provider Diagnosis [facility] [address] [place] [address] 11/02/2023 Araseli Slade Plan Of Treatment No Information Progress Notes * Patty ENGLE ADOB: [birth year] (28 yo F)Acc No.[id number]:11/02/2023 Progress Note Patient: Patty ZACARIAS Provider: Garo Slade CNM :1995 A ge:27 Y S ex:Female Date:11/02/2023 Address:[address] [place], [place] [address] Pcp:Rick Correia Subjective: * Chief Complaints: * 1 . 16 weeks. * Medical History: Objective: * Vitals: Assessment: Plan: * Treatment: * Images: Billing Information: * Visit Code: * Procedure Codes: * Electronic signature of Araseli Slade CNM on 11/25/2024 at 04:51 PM SECURITY GUARD Sign off status: Pending * Provider: Garo Slade CNM Date: 0 11/02/2023 Generated for Deloris powell/Elena/eTransmitting on: 11/25/2024 04:51 PM SECURITY GUARD
[2024-11-25 17:29] VITALS: BP 115/76; PULSE 58; RESP 16; TEMP 36.7; O2SAT 97; BMI 21.7
--- NOTE | 2024-11-25 17:33 | CRLHL7_ITS ---
For Patients: As a result of the Cures Act, medical imaging exams and procedure reports are released immediately into your electronic medical record. You may view this report before your referring provider. If you have questions, please contact your health care provider. Indication: Trauma. Technique: Right 3rd digit, 3 views. Comparison: None. Findings/Impression: Bones: Alignment is normal. Subtle lucency along the 3rd digit distal phalanx. Recommend correlation with point tenderness to exclude nondisplaced fracture. Otherwise, no displaced fractures or bone lesions. Joint spaces: Unremarkable. Soft tissues: Unremarkable. Dictated by Jeremiah Perez MD @ 11/25/2024 6:11:49 PM (Electronically Signed)
--- NOTE | 2024-11-25 17:43 | ED.UPPEXIN ---
HPI - Extremity Injury (Upper) General Chief Complaint: Extremity Pain/Injury, Upper Stated Complaint: believe broken finger on right hand Time Seen by Provider: 11/25/24 17:37 History of Present Illness HPI narrative: This 28-year-old female comes in with an injury to her finger. Earlier today she got her finger caught in a car door as it closed. She has increased pain and swelling since then. She wonders if she fractured her finger. The distal joint of of her right middle finger is where she has her most discomfort. Related Data Home Medications ?Medication ?Instructions ?Recorded ?Confirmed buspirone 5 mg tablet mg 11/25/24 escitalopram oxalate 20 mg tablet mg DAILY 11/25/24 lisdexamfetamine 30 mg capsule mg QAM 11/25/24 (Vyvanse) Allergies Allergy/AdvReac Type Severity Reaction Status Date / Time No Known Drug Allergies Allergy Verified 11/25/24 17:32 Review of Systems Status of ROS: Reports: 10 or more systems reviewed and unremarkable except as noted in History and below Narrative: Constitutional: No fevers, no weight gain or loss. Eyes: No discharge. No vision changes. HENT: No congestion, no sore throat, no ear pain. Cardiovascular: No chest pain, no palpitations. Respiratory: No shortness of breath, no wheezes, no cough. Gastrointestinal: No abdominal pain, no vomiting, no diarrhea. Genitourinary: No dysuria, no hematuria. Musculoskeletal: Normal range of motion. Skin: No rashes, no pruritis. Neurological: No dizziness, weakness, sensory change, speech change. Endo/Heme/Allergies: No bruising or bleeding. No polydipsia. Pysch: no suicidality, no anxiety, no insomnia. All other systems reviewed and are negative. [facility] Medical History Anxiety and depression ?F41.9 - Anxiety disorder, unspecified (ICD-10) ?F32.A - Depression, unspecified (ICD-10) ADHD, adult residual type ?F90.8 - Attention-deficit hyperactivity disorder, other type (ICD-10) Surgical History H/O dilation and curettage ?Z98.890 - Other specified postprocedural states (ICD-10) Social History Smoking Status: Never smoker Do you use any of these nicotine containing products: None How often do you have a drink containing alcohol: never AUDIT-C Alcohol total score: 0 Non-prescribed substance use: denies use service: No Exam Narrative: Exam Narrative: Constitutional: Well-developed, well-nourished, no acute distress. HEENT: Normocephalic, atraumatic. Neck: Normal range of motion. Nontender. Supple. Heart: Regular. No murmurs. Normal rate. Intact distal pulses. Lungs: Clear to auscultation. No chest discomfort. No wheezes, rhonchi, or rales. Abdomen: Normal bowel sounds. Nontender. No rebound tenderness. Genitalia: Deferred. Back: No midline tenderness. Normal range of motion. Extremities: Normal range of motion. Pain at the D IP joint of her right middle finger. There is some superficial abrasion at the base of the fingernail. Skin: Intact. No rash. Warm. No erythema or pallor. Neurologic: No altered sensation. No weakness. Alert and oriented. Psychiatric: No suicidality. No anxiety or depression. No insomnia. Nursing notes and vitals signs are reviewed. Const: Vital Signs, click to edit/add: Vital Signs - 24 hr 11/25/24 17:29 Temperature 98.1 F Pulse Rate [Pulse Oximeter] 58 L Respiratory Rate 16 Blood Pressure [Ri ght Upper Arm] 115/76 Pulse Oximetry 97 Oxygen Delivery Me thod Room Air Course Vital Signs Vital signs: Initial Vital Signs Temperature 98.1 F 11/25/24 17:29 Temperature Source Temporal Artery Scan 11/25/24 17:29 Pulse Rate 58 L 11/25/24 17:29 Respiratory Rate 16 11/25/24 17:29 Blood Pressure 115/76 11/25/24 17:29 Blood Pressure Mean 89 11/25/24 17:29 Blood Pressure Position Sitting 11/25/24 17:29 Pulse Oximetry 97 11/25/24 17:29 Oxygen Delivery Method Room Air 11/25/24 17:29 Vital Signs Temperature 98.1 F 11/25/24 17:29 Pulse Rate 58 L 11/25/24 17:29 Respiratory Rate 16 11/25/24 17:29 Blood Pressure 115/76 11/25/24 17:29 Pulse Oximetry 97 11/25/24 17:29 Oxygen Delivery Method Room Air 11/25/24 17:29 Temperature 98.1 F 11/25/24 17:29 Pulse Rate 58 L 11/25/24 17:29 Respiratory Rate 16 11/25/24 17:29 Blood Pressure 115/76 11/25/24 17:29 Pulse Oximetry 97 11/25/24 17:29 Oxygen Delivery Method Room Air 11/25/24 17:29 MDM - Extremity Injury (Upper) MDM Narrative Medical decision making narrative: This patient comes in with an injury to her finger as described above. X-ray images by my review show no sign of fracture dislocation. Patient received a bandage and a finger splint for symptomatic relief. Discharge Plan Discharge Clinical Impression: Finger sprain Patient Disposition: Home, Self-Care Condition: Stable Additional Instructions: Wear splint as needed. Use [id number] medicines as needed and directed. Follow up with MD return if worsening. Prescriptions: No Action buspirone 5 mg tablet Patient Comments: [NO ORIGINAL SIG] escitalopram oxalate 20 mg tablet DAILY lisdexamfetamine [Vyvanse] 30 mg capsule QAM Follow Up/Referrals: Provider,Not a Local [Primary Care Provider] - Stand Alone Forms: [facility] Info Instructions
--- OUTSIDE RECORDS SUMMARY | 2024-11-25 17:52 | XMS_ITS | Clinical Summary ---
Author Organization [facility] Address [address] [place] [address] Care Team Providers Care Stucco Laborer Name Role Phone Clinic, [facility] Pro vider Allergies No known [...] Answer Date Recorded PHQ-2 Score 4 01/09/2022 [place] Depression Scale Answer Date Recorded Last EPDS Total Score Not on file 04/03/2024 The thought of harming myself has occurred to me . 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 WITH BCBS [facility] WITH [facility] Advance Directives For more information, please contact: [phone] * Full Code (Latest Code Status on [...] eldae nt/ legal decision maker Care Teams Stucco Laborer Relationship Specialty Start Date End Date Clinic, [facility] [place] [address] PCP - General 04/03/24
--- OUTSIDE RECORDS SUMMARY | 2024-11-25 17:52 | XMS_ITS | Clinical Summary ---
Author Organization [facility] Address [address], [place] [address] Care Team Providers Care Diagnostic Radiologist Name Role Phone Rick Correia MD Primary Care Provider [phone] Source Comments You are receiving this document as you are listed as the primary care provider,follow-up provider, or the patient has been referred to you for consultation.This is in compliance with the Medicare and[facility] EHR Incentive Program,which states Providers who transition their patient to another setting of careor provider of care or refers their patient to another provider of care shouldprovide summary care record for each transition of care or referral. EARTHTORY Allergies No known active allergies Medications Medication [...] Appointment due with Dr. New, please call [phone] to schedule a visit for refills in [...] contact Sahra Llanos, Healthy Beginnings Specialist, at [phone]. Supervision of high-risk 10/22/2021 11/19/2023 Blood type A+ 10/22/2021 11/03/2023 Heartburn 10/22/2021 11/19/2023 Encounters Date Type Department Care Team Description 11/08/2024 Notes/Orders [facility] [facility] [address] [place] [phone] Imani Hollis PA-C Encounter for screening for other disorder (Primary Dx) 09/12/2024 8:03 AM SKEIN WASHER - 09/12/2024 11:59 PM SKEIN WASHER Hospital Encounter Gastroenterology Procedures at [facility] [address] [address] [place] [address] Genna Fair APRN, CNP Quinn, Kevin P, MD Irregular bowel habits (Primary Dx) Discharge Disposition: Home 09/08/2024 1:50 PM SKEIN WASHER Lab Visit [facility] [address] [place] [phone] Dizziness; Irregular bowel habits 09/08/2024 1:00 PM SKEIN WASHER Office Visit [place] [address] [facility] [address] [place] [phone] Genna Fair APRN, BLOOD BANK LABORATORY PROFESSIONAL Acute bilateral low back pain without sciatica (Primary Dx); Umbilical hernia without obstruction or gangrene; Bilateral hip pain; Dizziness; Irregular bowel habits 09/08/2024 Notes/Orders Digestive Care at [facility] at [address] [place] [address] Jimmy Collier MD 09/08/2024 E-Visit Endoscopy at [address] [place] [address] Mychart, Generic Provider from Last 3 Months Immunizations Name Administration Dates Next Due Influenza (Flucelvax), Preserv Free QIV 12/10/19 24 Influenza IIV4 (Quadrivalent) 0.5mL (45302) 04/2023,10/21/2021 Influenza ccIIV3 6 months+ (Flucelvax) 4 [...] Comments Blood Pressure 105/60 09/12/2024 9:30 AM SKEIN WASHER Pulse 50 09/12/2024 9:40 AM SKEIN WASHER Temperature 36.4 C (97.6 F) 12/07/2022 3:20 PM SKEIN WASHER Respiratory Rate 16 09/12/2024 9:40 AM SKEIN WASHER Oxygen Saturation 99% 09/12/2024 9:40 AM SKEIN WASHER Inhaled Oxygen Concentration - - Weight 54.4 kg (120 lb) 09/12/2024 8:09 AM SKEIN WASHER Height 154.9 cm (5' 1) 09/12/2024 8:09 AM SKEIN WASHER Body Mass Index 22.67 09/12/2024 8:09 AM SKEIN WASHER Plan of Treatment Health Maintenance Due Date [...] SURGICAL PATHOLOGY, GI Routine 4 9:01 AM SKEIN WASHER Irregular bowel habits COLONOSCOPY DIAGNOSTIC Routine 4 8:18 AM SKEIN WASHER Irregular bowel habits POCT URINE Routine 09/12/2024 8:16 AM SKEIN WASHER Irregular bowel habits COMPREHENSIVE METABOLIC PANEL Routine 09/08/2024 1:36 PM SKEIN WASHER Irregular bowel habits TISSUE TRANSGLUTAMINASE AB IGA Routine 09/08/2024 1:36 PM SKEIN WASHER Irregular bowel habits TSH, SENSITIVE Routine 09/08/2024 1:36 PM SKEIN WASHER Dizziness COMPLETE BLOOD COUNT-NO DIFF Routine 09/08/2024 1:36 PM SKEIN WASHER Dizziness HIV 1/2 AG/AB 4TH GEN Routine [...] YEARS AND OLDER) Routine 10/21/2021 12:45 PM SKEIN WASHER Supervision of high risk in second trimester History of recurrent miscarriages from Last 3 Months or Most Recently Relevant to Health Maintenance Results * Surgical Path - GI (09/12/2024 9:01 AM SKEIN WASHER) Case Report Surgical Pathology Case: [id number] Authorizing Provider: Jimmy Collier MD Collected: 09/12/2024 0901 Ordering Location: Gastroenterology Received: 09/12/2024 1620 Procedures at [facility] [address] [facility] Pathologist: Petr Driscoll MD Specimen: Colon, random 09/18/2024 2:24 PM SKEIN WASHER [facility] FINAL DIAGNOSIS A. Colon, random, biopsy: No diagnostic abnormality 09/18/2024 2:24 PM SKEIN WASHER [facility] Clinical Information Irregular bowel habits 09/18/2024 2:24 PM SKEIN WASHER [facility] Microscopic Description Microscopic examination is performed. 09/18/2024 2:24 PM SKEIN WASHER [facility] Gross Description A: The specimen is received in formalin and labeled with the patient's name and Colon, random. The specimen consists of multiple gill-white irregular soft tissue fragments, ranging from 0.1 cm to 0.2 cm. The specimen is filtered and entirely submitted in one cassette. AW 09/18/2024 2:24 PM SKEIN WASHER [facility] Embedded Images 09/18/2024 2:24 PM SKEIN WASHER [facility] Tissue COLON STRUCTURE / Unknown 09/12/2024 9:01 AM SKEIN WASHER 09/12/2024 4:20 PM SKEIN WASHER Jimmy Collier MD LAB PATHOLOGY [facility] [address] * Colonoscopy Diagnostic (09/12/2024 8:18 AM SKEIN WASHER) Anatomical Region Laterality Modality Other 09/12/2024 8:18 AM SKEIN WASHER Narrative 09/12/2024 8:18 AM SKEIN WASHER Patient Name: Patty Fuentes Procedure Date: 09/12/2024 [...] bowel preparation was evaluated using the BBPS (Paris Bowel Preparation Scale) with scores of: Right [...] from the initial medication administration until the excelsior cutter assists with initial maneuvers (biopsy / polypectomy [...] the patient. Procedure Code(s): --- Professional --- 49743, Colonoscopy, flexible; with biopsy, single or multiple G0500, Moderate sedation services provided by the same physician or other qualified health healthcare economics consultant performing a gastrointestinal endoscopic service that sedation supports, requiring the presence of an independent trained observer to assist in the monitoring of the patient's level of consciousness and physiological status; initial 15 minutes of intra-service time; patient age 5 years or older (additional time may be reported with 49090, as appropriate) Diagnosis Code(s): --- Professional --- K64.8, Other hemorrhoids K62.5, Hemorrhage of anus and rectum K59.00, Constipation, unspecified R19.7, Diarrhea, unspecified CPT copyright 2021 [employer]. All rights reserved. The codes documented in this report are preliminary and upon coder operator review may be revised to meet current [...] bowel preparation was evaluated using the BBPS (Paris Bowel Preparation Scale) with scores of: Right [...] from the initial medication administration until the excelsior cutter assists with initial maneuvers (biopsy / polypectomy [...] the patient. Procedure Code(s): --- Professional --- 45795, Colonoscopy, flexible; with biopsy, single or multiple G0500, Moderate sedation services provided by the same physician or other qualified health healthcare economics consultant performing a gastrointestinal endoscopic service that sedation supports, requiring the presence of an independent trained observer to assist in the monitoring of the patient's level of consciousness and physiological status; initial 15 minutes of intra-service time; patient age 5 years or older (additional time may be reported with 97384, as appropriate) Diagnosis Code(s): --- Professional --- K64.8, Other hemorrhoids K62.5, Hemorrhage of anus and rectum K59.00, Constipation, unspecified R19.7, Diarrhea, unspecified CPT copyright 2021 [employer]. All rights reserved. The codes documented in this report are preliminary and upon coder operator review may be revised to meet current compliance requirements. Jimmy Collier MD 09/12/2024 9:14:33 AM Number of Addenda: 0 Note Initiated On: 09/12/2024 8:18 AM Endoscopy Report Genna Fair APRN, CNP ET GI PROCEDURE ORDERABLES * Urine POCT (Unit Collect & Test) (09/12/2024 8:16 AM SKEIN WASHER) Urine Test - POC Negative Negative POCT Control Line Present, Clear Background - Internal control Yes POCT Cartridge Lot# [id number] POCT Comment:02/06/26 Urine 09/12/2024 8:16 AM SKEIN WASHER Jimmy Collier MD ET POINT OF CARE JOSSELIN T ENTER/EDIT ORDERABLES POCT * Tissue Transglutaminase Ab IgA (09/08/2024 1:36 PM SKEIN WASHER) Tissue Transglutaminase Antibody, IgA 0.3 0.0 - 6.9 U/mL 09/12/2024 10:04 AM SKEIN WASHER [facility] Tissue Transglutaminase Antibody, IgA Interpretation Negative Negative 09/12/2024 10:04 AM SKEIN WASHER [facility] Blood Venipuncture / Unknown 09/08/2024 1:36 PM SKEIN WASHER 09/08/2024 1:36 PM SKEIN WASHER Genna Fair APRN, CNP LAB_1 [facility] [address] * (ABNORMAL) Comp Metabolic Panel (09/08/2024 1:36 PM SKEIN WASHER) Sodium 141 136 - 145 mmol/L 09/08/2024 5:26 PM SKEIN WASHER [facility] Potassium 3.6 3.5 - 5.1 mmol/L 09/08/2024 5:26 PM [facility] Chloride 107 98 - 109 mmol/L 09/08/2024 5:26 PM [facility] CO2 24 20 - 29 mmol/L 09/08/2024 5:26 PM [facility] Anion Gap 10 6 - 16 mmol/L 09/08/2024 5:26 PM [facility] Calcium 9.6 8.4 - 10.4 mg/dL 09/08/2024 5:26 PM [facility] BUN 9 7 - 26 mg/dL 09/08/2024 5:26 PM [facility] Creatinine 0.69 0.55 - 1.02 mg/dL 09/08/2024 5:26 PM [facility] Alkaline Phosphatase 61 40 - 150 U/L 09/08/2024 5:26 PM [facility] AST (SGOT) 20 10 - 40 U/L 09/08/2024 5:26 PM [facility] ALT (SGPT) 14 <=55 U/L 09/08/2024 5:26 PM [facility] Bilirubin, Total 0.5 0.2 - 1.2 mg/dL 09/08/2024 5:26 PM [facility] Protein, Total 7.2 6.4 - 8.3 g/dL 09/08/2024 5:26 PM [facility] Albumin 4.1 3.5 - 5.0 g/dL 09/08/2024 5:26 PM [facility] Glucose 66(L) 70 - 100 mg/dL 09/08/2024 5:26 PM [facility] Comment:The given reference range is for the fasting state. Non-fasting reference range for glucose is 70 - 180 mg/dL. GFR, Estimated >60 >60 mL/min/1.7 3m2 09/08/2024 5:26 PM [facility] Hours Fasting 0.0 8 - 12 Hours 09/08/2024 5:26 PM [facility] Blood Venipuncture / Unknown 09/08/2024 1:36 PM SKEIN WASHER 09/08/2024 1:36 PM [facility] Genna Fair DATA COMMUNICATIONS ANALYST, BLOOD BANK LABORATORY PROFESSIONAL LAB_1 [facility] [address] [place] [address] * TSH (09/08/2024 1:36 PM SKEIN WASHER) Pathologist [facility] TSH, Sensitive 0.40 0.30 - 4.50 uIU/mL 09/08/2024 6:47 PM SKEIN WASHER [facility] Blood Venipuncture / Unknown 09/08/2024 1:36 PM SKEIN WASHER 09/08/2024 1:36 PM SKEIN WASHER Genna Fair APRN, BLOOD BANK LABORATORY PROFESSIONAL LAB_1 [facility] [address] [place], [place] [id number] [place] [address] * Complete Blood Count-No Diff (09/08/2024 1:36 PM SKEIN WASHER) [facility] WBC 6.2 3.5 - 10.5 x10(9)/L 09/08/2024 1:44 PM [facility] RBC 4.67 3.90 - 5.03 x10(12)/L 09/08/2024 1:44 PM [facility] Hemoglobin 14.0 12.0 - 15.5 g/dL 09/08/2024 1:44 PM [facility] HCT 41.1 34.9 - 44.5 % 09/08/2024 1:44 PM [facility] MCV 88.0 80.0 - 100.0 fL 09/08/2024 1:44 PM [facility] MCH 30.0 27.6 - 33.3 pg 09/08/2024 1:44 PM [facility] MCHC 34.1 31.5 - 35.2 g/dL 09/08/2024 1:44 PM [facility] RDW 11.9 11.9 - 15.5 % 09/08/2024 1:44 PM [facility] Platelets 192 150 - 450 x10(9)/L 09/08/2024 1:44 PM [facility] Blood Venipuncture / Unknown 09/08/2024 1:36 PM SKEIN WASHER 09/08/2024 1:36 PM SKEIN WASHER Genna Fair APRN, CNP LAB_1 Performing Organization Address City/[facility]/ZIP Co de Phone Number [facility] [address] [place] [address] * HIV 1/2 Ag/Ab 4th Generation (01/14/2024 2:13 PM CDT) HIV 1/2 Antigen/Antib alba (4th generation) Negative (Non Reactive) Negative (Non Reactive) 01/14/2024 8:37 PM CDT [facility] Comment:HIV-1 p24 Antigen an d HIV-1/HIV-2 Antibody not detected Blood Venipuncture / Unknown 01/14/2024 2:13 PM CDT 01/14/2024 2:13 PM CDT Zaynab Redding MD LAB_1 Performing Organization Address [facility] Co de Phone Number [facility] [address] * Hepatitis C Antibody, with Reflex (01/14/2024 2:13 PM CDT) Hepatitis C Antibody Negative (Non Reactive) Negative (Non Reactive) 01/14/2024 8:37 PM CDT [facility] Comment:Antibodies to HCV no t detected. Does not exclude the possiblity of exposure to HCV. Blood Venipuncture / Unknown 01/14/2024 2:13 PM CDT 01/14/2024 2:13 PM CDT Zaynab Redding MD LAB_1 Performing Organization Address City/[facility]/ZIP Co de Phone Number [facility] [address] * PAP Test (05/12/2022 10:38 AM CDT) Case Report Pap Case: [id number] Authorizing Provider: Josey Richard MD Collected: 05/12/2022 1038 Ordering Location: [place] [address] Received: 05/12/2022 1255 Obstetrics/Gynec ology First Screen: Meme Connor CT (ASCP) Specimen: Pap Test, Routine, Cervix/Endocervix 05/19/2022 2:27 PM CDT [facility] Pap Specimen Adequacy Satisfactory for evaluation, endocervical/machado sformation zone component present. 05/19/2022 2:27 PM CDT [facility] Pap Interpretation (NILM) Negative for intraepithelial lesion or malignancy. 05/19/2022 2:27 PM CDT [facility] Pap Disclaimer The Pap test is a screening test designed to aid in the detection of cervical cancer and its precursor lesions. It is not a diagnostic procedure and should not be used as the sole means of detecting cervical cancer. Both false-positive and false-negative results may occur. 05/19/2022 2:27 PM CDT [facility] Gross Description The specimen is received in SurePath fixative and properly labeled. 1 Pap-stained SurePath slide is prepared. 05/19/2022 2:27 PM CDT [facility] Embedded Images 2:27 PM CDT [facility] Other Specimen Type ENTIRE ENDOCERVIX / Unknown 05/12/2022 10:38 AM CDT 05/12/2022 12:55 PM CDT Comment:LMP: Patient's last menstrual period was 06/17/2021 (exact date). Josey Richard MD LAB PATHOLOGY Performing Organization Address City/State/[facility] de Phone Number [facility] [address] * Chlamydia and GC, Urine STD (10/21/2021 12:45 PM SKEIN WASHER) Chlamydia Trachomatis STD Not Detected Not Detected 10/22/2021 9:06 AM SKEIN WASHER [facility] N. gonorrhoeae STD Not Detected Not Detected 10/22/2021 9:06 AM SKEIN WASHER [facility] Urine STD (Urine for STD) Non-blood Collection / Unknown 10/21/2021 12:45 PM SKEIN WASHER 10/21/2021 12:45 PM SKEIN WASHER Narrative [facility] - 10/22/2021 9:06 AM SKEIN WASHER Test performed by [employer] Mediated Amplification (TMA). Josey Richard MD LAB_1 [facility] [address] [address], [facility] [phone] from Last 3 Months or Most Recently Relevant to Health Maintenance Care Teams Diagnostic Radiologist Relationship Specialty Start Date End Date Rick Correia MD [address] [place] [address] PCP - General Internal Medicine 10/21/21
--- OUTSIDE RECORDS SUMMARY | 2024-11-25 17:52 | XMS_ITS | Referral Summary ---
Author Organization [facility] Address [address] [place] [address] Care Team Providers Care Pharmacy Data Analyst Name Role Phone Clinic, [facility] Pro vider Allergies No known [...] Answer Date Recorded PHQ-2 Score 4 01/09/2022 [place] Depression Scale Answer Date Recorded Last EPDS Total Score Not on file 04/03/2024 The thought of harming myself has occurred to me . 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 Gender Identity Not on file Sexual Orientation [...] Relevant to Health Maintenance Insurance LEEROY Nixon [id number] [facility] WITH [facility] LEEROY Nixon [id number] [facility] WITH [employer] Advance Directives For more information, please contact: [phone] * Full Code (Latest Code Status on [...] gomez nt/ legal decision maker Care Teams Pharmacy Data Analyst Relationship Specialty Start Date End Date [facility], [facility] [id number] [place] [address] PCP - General 04/03/24
--- OUTSIDE RECORDS SUMMARY | 2024-11-25 17:52 | XMS_ITS | Encounter Summary ---
Author Organization [facility] Address [address] [place] [address] Care Team Providers Care Accounting Systems Analyst Name Role Phone Rick Correia MD Primary Care Provider [phone] Encounter Details Date Type Department Care Team (Late st Contact Info) Description 11/08/2024 Notes/Orders [place] [address] [facility] [address] [place] [address] Imani Hollis, LORI [address] [place], [place] [id number] Encounter for screening for other disorder (Primary [...] Primary documented in this encounter Care Teams Accounting Systems Analyst Relationship Specialty Start Date End Date Rick Correia MD [address] [place] [address] PCP - General Internal Medicine 10/21/21 documented as of this encounter
--- OUTSIDE RECORDS SUMMARY | 2024-11-25 17:52 | XMS_ITS | Encounter Summary ---
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 No / Unsure 12/15/2021 9:23 AM FINISHING DEPARTMENT SUPERVISOR documented as of this encounter Plan of Treatment Not on file documented as of this encounter Visit Diagnoses Not on filedocumented in this encounter Care Teams Benefits Administrator Relationship Specialty Start Date End Date No Ref-Primary, Physician PCP - General 12/15/21 04/02/24 [facility] [id number] [place] [address] PCP - General 04/03/24 documented as of this encounter
--- OUTSIDE RECORDS SUMMARY | 2024-11-25 17:52 | XMS_ITS | Encounter Summary ---
Author Organization [facility] Address [address] [address] Care Team Providers Care Lasting Floorworker Name Role Phone Rick Correia MD Primary Care Provider [phone] Encounter Details Date Type Department Care Team (Late st Contact Info) Description 09/08/2024 E-Visit Endoscopy at [facility] at [address] [place] [address] Mychart, [place] [address] Social History Tobacco Use Types Packs/Day Years [...] on filedocumented in this encounter Care Teams Lasting Floorworker Relationship Specialty Start Date End Date Rick Correia MD [address] [place] [address] PCP - General Internal Medicine 10/21/21 documented as of this encounter
== END 2024-11-25 18:19 | disposition home or self-care (01) ==
PROVIDERS: Emergency Provider Emergency Medicine Emergency Medical Services
DX: S63.612A Unspecified sprain of right middle finger, initial encounter (principal); W23.0XXA Caught, crushed, jammed, or pinched between moving objects, initial encounter
CPT/HCPCS: 29130; 73140; 99283; 99284

== ENCOUNTER 2025-05-30 10:50 | Outpatient (CLI) | payer OTHER, SELFPAY | END 2025-05-30 10:51 | disposition home or self-care (01) | LOC: AMB 06-06 14:06 | PROVIDERS: Visit Provider Student in an Organized Health Care Education/Training Program | DX: R20.0 Anesthesia of skin (principal); R53.1 Weakness | CPT/HCPCS: A0425; A0427 ==

== ENCOUNTER 2025-05-30 12:12 | Emergency (ER) | payer OTHER, SELFPAY ==
--- OUTSIDE RECORDS SUMMARY | 2025-05-09 16:00 | XMS_ITS | Encounter Summary ---
[facility] Organization [facility] Address [address], [place] [address] Care Team Providers Care Retail Solar Advisor Name Role Phone Rick Correia MD Primary Care Provider [phone] Reason for Visit * Reason Comments NUMBNESS SKIN DISCOLORATION In feet- a toe will turn blue Encounter Details Date Type Department Care Team (Late st Contact Info) Description 05/09/2025 4:00 PM CDT Office Visit [place] [address] Family Medicine [address] [place] [phone] Mark Robertson, LORI [address] [place] [address] Extremity cyanosis (Primary Dx); Numbness and tingling of both lower extremities; Near syncope Social History Tobacco Use Types Packs/Day Years Used Date Smoking Tobacco: Never Passive Smoke Exposure: Never Smokeless Tobacco: Never Alcohol Use Standard Drinks/Week Comments Yes 0 (1 standard drink = 0.6 oz pur e alcohol) occ PHQ-2 Answer Date Recorded PHQ-2 Score 0 01/10/2025 Depression Answer Date Recor ded Last EPDS Total Score 5 12/10/2024 Last EPDS Self Harm Result Not on file 12/10 Comments No Sex and Gender Information Value Date Recorded Sex Assigned at Not on file 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 Gender Identity Not on file Sexual Orientation Not on file 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 Not on file Not on file H: Not on file Not on file Not on file documented as of this encounter Last Filed Vital Signs Vital Sign Reading Time Taken Comments Blood Pressure 110/62 05/09/2025 4:08 PM CDT Pulse 55 05/09/2025 4:08 PM CDT Temperature - - Respiratory Rate 15 05/09/2025 4:08 PM CDT Oxygen Saturation - - Inhaled Oxygen Concentration - - Weight 46.3 kg (102 lb 1.6 oz) 05/09/2025 4:08 P M CDT Height 154.9 cm (5' 1) 05/09/2025 4:08 PM CDT Body Mass Index 19.29 05/09/2025 4:08 PM CDT documented in this encounter Patient Instructions * Patient Instructions* Mark Robertson PA-C - 05/09/2025 4:00 PM CDT Plan: 1). Will follow-up on labs and any concerns. 2). Consider referral based on labs. 3). Follow-up with any other acute issues or concerns. documented in this encounter Progress Notes * Mark Robertson PA-C - 05/09/2025 4:00 PM CDT Chief Complaint Patient presents with NUMBNESS SKIN DISCOLORATION In feet- a toe will turn blue History of present illness: Patty Fuentes is a 29 y.o. female who presents with ongoing issues with dusky/cyanotic feet and toes, occasionally affecting distal legs as well that generally occur with exposure to cold and also if she is in certain positions. Symptoms improve over time. When her feet/toes get really dusky/cyanotic appearing they will feel numb. Her hands/fingers tend to get more white appearing with similar exposure but not necessarily at the same time as her lower extremities. She always feels cold but at night tends to sweat a lot. In addition to above has had episodes of syncope/near syncope off on for several years. Tended to happen more when she lived in [place] but still will happen on occasion including more recently but did not have actual fainting spell. Usually these episodes are related to various positions but not necessarily getting up from lying down too fast. She has had some evaluation in the past. Symptoms do not necessarily occur in relation to above symptoms. Review of Systems: As stated in HPI otherwise negative. Past Medical History: Reviewed and updated in medical record at visit Past Surgical History: Reviewed and updated in medical record at visit Family History: Reviewed and updated in medical record at visit Medications: Reviewed and reconciled in medical record at visit. Allergies: Reviewed and updated in medical record at visit. Physical Exam: Vitals: 05/09/25 1608 BP: 110/62 Pulse: (!) 55 Resp: 15 GEN: Alert, oriented, well nourished/hydrated in NAD, Does not appear acutely ill. EYES: PEERL, EOMI NECK: Supple, trachea midline, no LAD CHEST: Normal effort, CTA. HEART: RRR, No audible murmur, rub or gallop. SKIN: Warm and dry without rash. EXTREMITIES: Exam of BLEs with no current cyanosis, or pallor. Good pedal pulses and capillary refill. BUEs with no cyanosis or pallor as well. Normal radial pulses and good capillary refill. M/S: No joint swelling or redness. NEURO: CN 2-12 intact, non-focal exam PSYCH: Alert and oriented. Normal affect. Encounter Diagnoses Name Primary? Extremity cyanosis Yes Numbness and tingling of both lower extremities Near syncope Plan: 1). Will follow-up on labs and any concerns. 2). Consider referral based on labs. 3). Follow-up with any other acute issues or concerns. Orders Placed This Encounter Complete Blood Count -W/Diff Comp Metabolic Panel TSH Iron Profile (Iron,TIBC,%Sat.(Calc)) Ferritin C-Reactive Protein YULISSA with Reflex to YULISSA Profile 2 documented in this encounter Plan of Treatment Upcoming Encounters Date Type Department Care Team (Late st Contact Info) Description 07/18/2025 9:[address] [facility] [address] [place] [address] Nohemi Caballero MSW, CNA PCT [address] [facility] LEEROY Becerra [phone] documented as of this encounter Results * YULISSA with Reflex to YULISSA Profile 2 (05/09/2025 4:56 PM CDT) Pathologist [facility] YULISSA Interpretation Negative Negative 2024 2:15 PM CDT [facility] Blood Venipuncture / Unknown 05/09/2025 4:56 PM CDT 05/09/2025 4:56 PM CDT Mark Robertson PA-C LAB_1 Final Result Performing Organization Address City/[facility]/ZIP Co de Phone Number [facility] [address] * C-Reactive Protein (05/09/2025 4:56 PM CDT) [facility] C-Reactive Protein <0.1 0.0 - 0.5 mg/dL 05/09/2025 8:24 PM CDT [facility] Blood Venipuncture / Unknown 05/09/2025 4:56 PM CDT 05/09/2025 4:56 PM CDT Mark Robertson PA-C LAB_1 Final Result Performing Organization Address [facility] de Phone Number [facility] [address] [place] [address] * Ferritin (05/09/2025 4:56 PM CDT) [facility] Ferritin 78 9 - 204 ng/mL 05/09/2025 9:39 PM CDT [facility] Blood Venipuncture / Unknown 05/09/2025 4:56 PM CDT 05/09/2025 4:56 PM CDT Mark AVELARC LAB_1 Final Result Performing Organization Address City/[facility] Co de Phone Number [facility] [address] * Iron Profile (Iron,TIBC,%Sat.(Calc)) (05/09/2025 4:56 PM CDT) Pathologist [facility] Iron 78 50 - 170 mcg/dL 05/09/2025 10:35 PM CDT [facility] Transferrin 251 180 - 382 mg/dL 05/09/2025 10:35 PM CDT [facility] TIBC, Calculated 314 240 - 450 mcg/dL 05/09/2025 10:35 PM CDT [facility] % Saturation, Calculated 25 10 - 50 % 05/09/2025 10:35 PM CDT [facility] Blood Venipuncture / Unknown 05/09/2025 4:56 PM CDT 05/09/2025 4:56 PM CDT Mark Robertson PA-C LAB_1 Final Result Performing Organization Address [facility] Phone Number [facility] [address] [place] [address] * TSH (05/09/2025 4:56 PM CDT) [facility] TSH, Sensitive 0.84 0.30 - 4.50 uIU/mL 05/09/2025 9:38 PM CDT [facility] Blood Venipuncture / Unknown 05/09/2025 4:56 PM CDT 05/09/2025 4:56 PM CDT Mark Robertson PA-C LAB_1 Final Result Performing Organization Address [facility] Phone Number [facility] [address] [place] [address] * Comp Metabolic Panel (05/09/2025 4:56 PM CDT) [facility] Sodium 139 136 - 145 mmol/L 05/09/2025 8:24 PM CDT [facility] Potassium 3.9 3.5 - 5.1 mmol/L 05/09/2025 8:24 PM CDT [facility] Chloride 105 98 - 109 mmol/L 05/09/2025 8:24 PM CDT [facility] CO2 22 20 - 29 mmol/L 05/09/2025 8:24 PM CDT [facility] Anion Gap 12 6 - 16 mmol/L 05/09/2025 8:24 PM [facility] Calcium 9.0 8.4 - 10.4 mg/dL 05/09/2025 8:24 PM [facility] BUN 9 7 - 26 mg/dL 05/09/2025 8:24 PM [facility] Creatinine 0.73 0.55 - 1.02 mg/dL 05/09/2025 8:24 PM [facility] Alkaline Phosphatase 57 40 - 150 U/L 05/09/2025 8:24 PM [facility] AST (SGOT) 27 16 - 46 U/L 05/09/2025 8:24 PM [facility] ALT (SGPT) 18 0 - 55 U/L 05/09/2025 8:24 PM [facility] Bilirubin, Total 0.2 0.2 - 1.2 mg/dL 05/09/2025 8:24 PM [facility] Protein, Total 7.4 6.4 - 8.3 g/dL 05/09/2025 8:24 PM [facility] Albumin 4.5 3.5 - 5.0 g/dL 05/09/2025 8:24 PM [facility] Glucose 72 70 - 100 mg/dL 05/09/2025 8:24 PM [facility] Comment:The given reference range is for the fasting state. Non-fasting reference range for glucose is 70 - 180 mg/dL. GFR, Estimated >60 >60 mL/min/1.7 3m2 05/09/2025 8:24 PM [facility] Hours Fasting 0.1 8 - 12 Hours 05/09/2025 8:24 PM [facility] Blood Venipuncture / Unknown 05/09/2025 4:56 PM CDT 05/09/2025 4:56 PM T Mark Robertson PA-C LAB_1 Final Result [facility] [address] [place] [address], [facility] documented in this encounter Visit Diagnoses Diagnosis Extremity cyanosis- Primary Other peripheral vascular disease Numbness and tingling of both lower extremities Near syncope Syncope and collapse documented in this encounter Care Teams Retail Solar Advisor Relationship Specialty Start Date End Date Rick Correia MD [facility] [place] [address] PCP - General Internal Medicine 10/21/21 documented as of this encounter
--- OUTSIDE RECORDS SUMMARY | 2025-05-09 17:00 | XMS_ITS | Encounter Summary ---
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 Not on file Not on file H: Not on file Not on file Not on file documented as of this encounter Plan of Treatment Upcoming Encounters Date Type Department Care Team (Late st Contact Info) Description 07/18/2025 9:00 AM CDT Telemedicine [facility] [address] [place] [address] Nohemi Caballero MSW, PRINT FINISHING WORKER [address] [place] [address] [place] [address] documented as of this encounter Procedures Procedure Name Priority Date/Time Associated Diagnosis Comments CBC AND DIFFERENTIAL PANEL Routine 05/09/2025 4:56 PM CDT Extremity cyanosis Numbness and tingling of both lower extremities Near syncope YULISSA WITH REFLEX TO YULISSA PROFILE 2 Routine 05/09/2025 4:56 PM CDT Extremity cyanosis Numbness and tingling of both lower extremities Near syncope COMPLETE BLOOD COUNT-W/DIFF Routine 05/09/2025 4:56 PM CDT Extremity cyanosis Numbness and tingling of both lower extremities Near syncope COMPREHENSIVE METABOLIC PANEL Routine 05/09/2025 4:56 PM CDT Extremity cyanosis Numbness and tingling of both lower extremities Near syncope TSH, SENSITIVE Routine 05/09/2025 4:56 PM CDT Extremity cyanosis Numbness and tingling of both lower extremities Near syncope FERRITIN Routine 05/09/2025 4:56 PM CDT Extremity cyanosis Numbness and tingling of both lower extremities Near syncope C-REACTIVE PROTEIN Routine 05/09/2025 4: 56 PM CDT Extremity cyanosis Numbness and tingling of both lower extremities Near syncope IRON PROFILE (IRON,TIBC,%SAT.(CALC) ) Routine 05/09/2025 4:56 PM CDT Extremity cyanosis Numbness and tingling of both lower extremities Near syncope documented in this encounter Results * Complete Blood Count-W/Diff (05/09/2025 4:56 PM CDT) [facility] WBC 5.6 3.5 - 10.5 x10(9)/L 05/09/2025 4:59 PM CDT [facility] RBC 4.46 3.90 - 5.03 x10(12)/L 05/09/2025 4:59 PM [facility] Hemoglobin 13.2 12.0 - 15.5 g/dL 05/09/2025 4:59 PM [facility] HCT 39.5 34.9 - 44.5 % 05/09/2025 4:59 PM [facility] MCV 88.6 80.0 - 100.0 fL 05/09/2025 4:59 PM [facility] MCH 29.6 27.6 - 33.3 pg 05/09/2025 4:59 PM [facility] MCHC 33.4 31.5 - 35.2 g/dL 05/09/2025 4:59 PM [facility] RDW 12.7 11.9 - 15.5 % 05/09/2025 4:59 PM [facility] Platelets 258 150 - 450 x10(9)/L 05/09/2025 4:59 PM [facility] Neutrophil Absolute 3.0 1.7 - 7.0 10(9)/L 05/09/2025 4:59 PM [facility] Lymphocyte Absolute 2.2 1.0 - 4.8 10(9)/L 05/09/2025 4:59 PM [facility] Monocyte Absolute 0.3 0.2 - 0.9 10(9)/L 05/09/2025 4:59 PM [facility] Eosinophil Absolute 0.1 0.0 - 0.5 10(9)/L 05/09/2025 4:59 PM [facility] Basophil Absolute 0.0 0.0 - 0.3 10(9)/L 05/09/2025 4:59 PM [facility] Immature Granulocyte % 0.0 0.0 - 0.5 % 05/09/2025 4:59 PM [facility] Blood Venipuncture / Unknown 05/09/2025 4:56 PM CDT 05/09/2025 4:56 PM CDT us Mark Robertson PA-C LAB_1 Final Result [facility] [address] [place] [address] * YULISSA with Reflex to YULISSA Profile 2 (05/09/2025 4:56 PM CDT) Pathologist [facility] YULISSA Interpretation Negative Negative 2024 2:15 PM CDT [facility] Blood Venipuncture / Unknown 05/09/2025 4:56 PM CDT 05/09/2025 4:56 PM CDT Mark Robertson PA-C LAB_1 Final Result Performing Organization Address [facility] Co de Phone Number [facility] [address] * C-Reactive Protein (05/09/2025 4:56 PM CDT) [facility] C-Reactive Protein <0.1 0.0 - 0.5 mg/dL 05/09/2025 8:24 PM CDT [facility] Blood Venipuncture / Unknown 05/09/2025 4:56 PM CDT 05/09/2025 4:56 PM CDT Mark Robertson PA-C LAB_1 Final Result Performing Organization Address [facility] Co de Phone Number [facility] [address] [place] [address] * Ferritin (05/09/2025 4:56 PM CDT) [facility] Ferritin 78 9 - 204 ng/mL 05/09/2025 9:39 PM CDT [facility] Blood Venipuncture / Unknown 05/09/2025 4:56 PM CDT 05/09/2025 4:56 PM CDT Mark Robertson PA-C LAB_1 Final Result Performing Organization Address City/[facility]/ZIP Co de Phone Number [facility] [address] * Iron Profile (Iron,TIBC,%Sat.(Calc)) (05/09/2025 4:56 PM CDT) Pathologist [facility] Iron 78 50 - 170 mcg/dL 05/09/2025 10:35 PM CDT [facility] Transferrin 251 180 - 382 mg/dL 05/09/2025 10:35 PM CDT [facility] TIBC, Calculated 314 240 - 450 mcg/dL 05/09/2025 10:35 PM CDT [facility] % Saturation, Calculated 25 10 - 50 % 05/09/2025 10:35 PM CDT [facility] Blood Venipuncture / Unknown 05/09/2025 4:56 PM CDT 05/09/2025 4:56 PM CDT Mark Robertson PA-C LAB_1 Final Result Performing Organization Address [facility] Phone Number [facility] [address] [place] [address] * TSH (05/09/2025 4:56 PM CDT) Pathologist [facility] TSH, Sensitive 0.84 0.30 - 4.50 uIU/mL 05/09/2025 9:38 PM CDT [facility] Blood Venipuncture / Unknown 05/09/2025 4:56 PM CDT 05/09/2025 4:56 PM CDT Mark Robertson PA-C LAB_1 Final Result Performing Organization Address [facility] Phone Number [facility] [address] [place] [address] * Comp Metabolic Panel (05/09/2025 4:56 PM CDT) Pathologist [facility] Sodium 139 136 - 145 mmol/L 05/09/2025 8:24 PM CDT [facility] Potassium 3.9 3.5 - 5.1 mmol/L 05/09/2025 8:24 PM CDT [facility] Chloride 105 98 - 109 mmol/L 05/09/2025 8:24 PM CDT [facility] CO2 22 20 - 29 mmol/L 05/09/2025 8:24 PM [facility] Anion Gap 12 6 - 16 mmol/L 05/09/2025 8:24 PM [facility] Calcium 9.0 8.4 - 10.4 mg/dL 05/09/2025 8:24 PM [facility] BUN 9 7 - 26 mg/dL 05/09/2025 8:24 PM [facility] Creatinine 0.73 0.55 - 1.02 mg/dL 05/09/2025 8:24 PM [facility] Alkaline Phosphatase 57 40 - 150 U/L 05/09/2025 8:24 PM [facility] AST (SGOT) 27 16 - 46 U/L 05/09/2025 8:24 PM [facility] ALT (SGPT) 18 0 - 55 U/L 05/09/2025 8:24 PM [facility] Bilirubin, Total 0.2 0.2 - 1.2 mg/dL 05/09/2025 8:24 PM [facility] Protein, Total 7.4 6.4 - 8.3 g/dL 05/09/2025 8:24 PM [facility] Albumin 4.5 3.5 - 5.0 g/dL 05/09/2025 8:24 PM [facility] Glucose 72 70 - 100 mg/dL 05/09/2025 8:24 PM [facility] Comment:The given reference range is for the fasting state. Non-fasting reference range for glucose is 70 - 180 mg/dL. GFR, Estimated >60 >60 mL/min/1.7 3m2 05/09/2025 8:24 PM [facility] Hours Fasting 0.1 8 - 12 Hours 05/09/2025 8:24 PM [facility] Blood Venipuncture / Unknown 05/09/2025 4:56 PM CDT 05/09/2025 4:56 PM T us Mark Robertson PA-C LAB_1 Final Result [facility] [address] [place] [address] documented in this encounter Visit Diagnoses Diagnosis Extremity cyanosis Other peripheral vascular disease Numbness and tingling of both lower extremities Near syncope Syncope and collapse documented in this encounter Care Teams City Manager Relationship Specialty Start Date End Date Rick Correia MD [address] [place] [address] PCP - General Internal Medicine 10/21/21 documented as of this encounter
--- OUTSIDE RECORDS SUMMARY | 2025-05-30 12:15 | XMS_ITS | Encounter Summary ---
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 Gender Identity Not on file Sexual Orientation Not on file 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 Not on file Not on file H: Not on file Not on file Not on file documented as of this encounter Plan of Treatment Upcoming Encounters Date Type Department Care Team (Late st Contact Info) Description 07/18/2025 9:00 AM CDT Telemedicine [address] [address] Nohemi Caballero, CARTON PACKAGING MACHINE OPERATOR, CAMPGROUND CLEANING ATTENDANT [address] [place] [address] documented as of this encounter Visit Diagnoses Not on filedocumented in this encounter Care Teams Sales Recruiting Coordinator Relationship Specialty Start Date End Date Rick Correia MD [address] [place] [address] PCP - General Internal Medicine 10/21/21 documented as of this encounter
--- OUTSIDE RECORDS SUMMARY | 2025-05-30 12:15 | XMS_ITS | Clinical Summary ---
Author Organization [facility] Address [address] [place] [address] Care Team Providers Care Precinct Police Captain Name Role Phone Clinic, [facility] Pro vider Allergies No known [...] Answer Date Recorded PHQ-2 Score 4 01/09/2022 [place] Depression Scale Answer Date Recorded Last EPDS Total Score Not on file 04/03/2024 The thought of harming myself has occurred to me . 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 Gender Identity Not on file Sexual Orientation [...] 1995 ANNUAL REVIEW OF HM ORDERS 1995 YEARLY PREVENTIVE VISIT 1998 HEPATITIS B VACCINE (1 of 3 - 19+ 3-dose series) 2014 PNEUMOCOCCAL VACCINE: PEDIAT RICS (0 to 5 YEARS) AND AT-RISK PATIENTS (6 to 49 YEARS) (1 of 2 - PCV) 2014 COVID-19 VACCINE (2 - season) 07/02/202406/2022 PHQ-2 (once per calendar year) 2024 01/09/2022 PAP 05/12/2025 05/12/2022 INFLUENZA VACCINE (#1) 2025 , 12/07/2022, 10/21/2021 DTAP/TDAP/TD VACCINE (3 - Td or Tdap) 02/03/203403/2024, 12/17/2021 ZOSTER VACCINE (1 of 2) 2045 MENINGITIS VACCINE Completed 05/21/2014 HEPATITIS C SCREENING Completed 01/14/2024, 021 HIV SCREENING Completed 01/14/2024, 12/30, 08/27/2021 HPV VACCINE (No Doses Required) Completed Procedures Procedure Name Priority Date/Time Associated Diagnosis [...] Most Recently Relevant to Health Maintenance Insurance [facility] WITH BS [facility] WITH [facility] Advance Directives For more information, please contact: [phone] * Full Code (Latest Code Status on [...] gomez nt/ legal decision maker Care Teams Precinct Police Captain Relationship Specialty Start Date End Date [facility] [id number] [place] [address] PCP - General 04/03/24
--- OUTSIDE RECORDS SUMMARY | 2025-05-30 12:15 | XMS_ITS | Clinical Summary ---
Author Organization [employer] Address [address], [place] [address] Care Team Providers Care Ingredient Scaler Helper Name Role Phone Rick Correia MD Primary Care Provider [phone] Source Comments You are receiving this document as you are listed as the primary care provider,follow-up provider, or the patient has been referred to you for consultation.This is in compliance with the Medicare andMedicaid EHR Incentive Program,which states Providers who transition their patient to another setting of careor provider of care or refers their patient to another provider of care shouldprovide summary care record for each transition of care or referral. [employer] Allergies No known active allergies Medications * This document contains information received from the source organization and may not represent a complete record from that organization. drug not in computerIndicatio ns:Lactating mother Breast pump for home use. 1 Each 02/04/20 24 Active Additional Information Patient not taking.Reported on 05/09/2025 busPIRone (BUSPAR) 10 MG tabletIndications :Anxiety (HRC) Take 1 Tablet (10 mg) by mouth two times a day. 01/13/20 25 Active escitalopram oxalate (LEXAPRO) 20 MG tabletIndications :Anxiety (HRC) Take 1 Tablet (20 mg) by mouth daily. 90 Tablet 3 04/04/20 25 Active VYVANSE 40 MG capsuleIndication s:Attention deficit hyperactivity disorder (ADHD), combined type, mild (HRC) Take 1 Capsule (40 mg) by mouth daily for 30 days. 30 Capsule 05/24/20 25 025 Active VYVANSE 40 MG capsuleIndication s:Attention deficit hyperactivity disorder (ADHD), combined type, mild (HRC) Take 1 Capsule (40 mg) by mouth daily for 30 days. 3 of 3 Do not start before March 13, 2025. 30 Capsule 03/13/20 25 025 Discontin ued(*Med change OR same med OR reorder, new dose/dire ctions) Active Problems Problem Noted Date Diagnosed Date [...] contact Sahra Llanos, Healthy Beginnings Specialist, at [phone]. Supervision of high-risk 10/22/2021 11/19/2023 Blood type A+ 10/22/2021 11/03/2023 Heartburn 10/22/2021 11/19/2023 Encounters * This document contains information received from the source organization and may not represent a complete record from that organization. Date Type Department Care Team Description 05/18/2025 Results Follow-Up [place] [address] [facility] [address] [place] [id number] Mark Robertson PA-C 05/09/2025 5:00 PM CDT Lab Visit [address] [address] Extremity cyanosis; Numbness and tingling of both lower extremities; Near syncope 05/09/2025 4:00 PM CDT Office Visit [place] [address] [facility] [address] [place] [address] Mark Robertson PA-C Extremity cyanosis (Primary Dx); Numbness and tingling of both lower extremities; Near syncope 04/04/2025 2:00 PM CDT Phone Visit [facility] [address] [place] [address] Rick Correia MD Anxiety (HRC) (Primary Dx) 03/26/2025 Refill [facility] [address] 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 Not on file Not on file H: Not on file Not on file Not on file Last Filed Vital Signs Vital Sign Reading Time Taken Comments Blood Pressure 110/62 05/09/2025 4:08 PM CDT Pulse 55 05/09/2025 4:08 PM CDT Temperature 36.4 C (97.6 F) 12/07/2022 3:20 PM CONDUCTOR FREIGHT Respiratory Rate 15 05/09/2025 4:08 PM CDT Oxygen Saturation 99% 09/12/2024 9:40 AM CONDUCTOR FREIGHT Inhaled Oxygen Concentration - - Weight 46.3 kg (102 lb 1.6 oz) 05/09/2025 4:08 P M CDT Height 154.9 cm (5' 1) 05/09/2025 4:08 PM CDT Body Mass Index 19.29 05/09/2025 4:08 PM CDT Plan of Treatment Upcoming Encounters Date Type Department Care Team (Late st Contact Info) Description 07/18/2025 9:00 AM CDT Telemedicine [facility] [id number] [place] [address] Nohemi Caballero, RESTROOMS OR LOUNGES MAID, PROGRAM ARCHITECT [address] [place] [address] Health Maintenance Due Date Last Done Comments Adult Preventive Visit 2013 HepB Vaccine (1) 2014 COVID-19 Vaccine ( season) 2024 11/08/2021 Cervical Cancer Screening 05/12/2025 05/12/2022 Influenza Vaccine (#1) 2025 , 12/10/2023, 12/07/2022, Additional history exists DTaP/Tdap/Td Vaccine (3 - Tdap) 02/03/2034 02/04/2024, 12/17/2021 Zoster/Shingles Vaccine (1 of 2) 2045 Chlamydia Discontinued 10/21/2021 HIV Screening (Preventive Services) Completed 01/14/2024, 08/27/2021 Hep C Screening (Preventive Services) Completed 01/14/2024, 10/21/2021 HPV Vaccine Aged Out No longer eligi ble based on patient's age to complete this topic HepA Vaccine Aged Out No longer eligi ble based on patient's age to complete this topic Hib Vaccine Aged Out No longer eligi ble based on patient's age to complete this topic IPV (Polio) Vaccine Aged Out No longe r eligible based on patient's age to complete this topic MCV4 Vaccine Aged Out No longer eligi ble based on patient's age to complete this topic Meningococcal B Vaccine Aged Out No l onger eligible based on patient's age to complete this topic Pneumococcal Vaccine Aged Out No long er eligible based on patient's age to complete this topic Procedures Procedure Name Priority Date/Time Associated Diagnosis Comments COMPLETE BLOOD COUNT-W/DIFF Routine 05/09/2025 4:56 PM [...] both lower extremities Near syncope IRON PROFILE (IRON,TIBC,%SAT.(CALC )) Routine 05/09/2025 4:56 PM CDT Extremity cyanosis Numbness and tingling of both lower extremities Near syncope TSH, SENSITIVE Routine 05/09/2025 4:56 PM CDT Extremity cyanosis Numbness and tingling of both lower extremities Near syncope COMPREHENSIVE METABOLIC PANEL Routine 05/09/2025 4:56 PM CDT Extremity cyanosis Numbness and tingling of both lower extremities Near syncope CBC AND DIFFERENTIAL PANEL Routine 05/09/2025 4:56 PM CDT Extremity cyanosis Numbness and tingling of both lower extremities Near syncope HIV 1/2 AG/AB 4TH GEN Routine 01/14/2024 2:13 PM CDT Supervision of high risk in second trimester HEPATITIS C ANTIBODY, WITH REFLEX (ANTI-HCV) Routine 01/14/2024 2:13 PM CDT Supervision of high risk in second trimester CYTOLOGY (PAP) Routine 05/12/2022 10:38 AM CDT Screening for malignant neoplasm of cervix examination following vaginal delivery CHLAMYDIA & GC, URINE (14 YEARS AND OLDER) Routine 10/21/2021 12:45 PM CONDUCTOR FREIGHT Supervision of high risk in second trimester History of recurrent miscarriages from Last 3 Months or Most Recently Relevant to Health Maintenance Results * YULISSA with Reflex to YULISSA Profile 2 (05/09/2025 4:56 PM CDT) YULISSA Interpretation Negative Negative 2024 2:15 PM CDT [facility] Blood Venipuncture / Unknown 05/09/2025 4:56 PM CDT 05/09/2025 4:56 PM CDT us Mark Robertson PA-C LAB_1 Final Result [facility] [address] [employer] [address] * Complete Blood Count-W/Diff (05/09/2025 4:56 PM CDT) [facility] WBC 5.6 3.5 - 10.5 x10(9)/L 05/09/2025 4:59 PM [facility] RBC 4.46 3.90 - 5.03 x10(12)/L 05/09/2025 4:59 PM [facility] Hemoglobin 13.2 12.0 - 15.5 g/dL 05/09/2025 4:59 PM [facility] HCT 39.5 34.9 - 44.5 % 05/09/2025 4:59 PM [facility] MCV 88.6 80.0 - 100.0 fL 05/09/2025 4:59 PM [facility] MCH 29.6 27.6 - 33.3 pg 05/09/2025 4:59 PM [facility] MCHC 33.4 31.5 - 35.2 g/dL 05/09/2025 4:59 PM [facility] RDW 12.7 11.9 - 15.5 % 05/09/2025 4:59 PM [facility] Platelets 258 150 - 450 x10(9)/L 05/09/2025 4:59 PM [facility] Neutrophil Absolute 3.0 1.7 - 7.0 10(9)/L 05/09/2025 4:59 PM [facility] Lymphocyte Absolute 2.2 1.0 - 4.8 10(9)/L 05/09/2025 4:59 PM [facility] Monocyte Absolute 0.3 0.2 - 0.9 10(9)/L 05/09/2025 4:59 PM [facility] Eosinophil Absolute 0.1 0.0 - 0.5 10(9)/L 05/09/2025 4:59 PM [facility] Basophil Absolute 0.0 0.0 - 0.3 10(9)/L 05/09/2025 4:59 PM [facility] Immature Granulocyte % 0.0 0.0 - 0.5 % 05/09/2025 4:59 PM [facility] Blood Venipuncture / Unknown 05/09/2025 4:56 PM CDT 05/09/2025 4:56 PM CDT us Mark Robertson PA-C LAB_1 Final Result [facility] [address] [place] [address], [facility] * Comp Metabolic Panel (05/09/2025 4:56 PM CDT) Sodium 139 136 - 145 mmol/L 05/09/2025 8:24 PM [facility] Potassium 3.9 3.5 - 5.1 mmol/L 05/09/2025 8:24 PM [facility] Chloride 105 98 - 109 mmol/L 05/09/2025 8:24 PM [facility] CO2 22 20 - 29 mmol/L 05/09/2025 8:24 PM [facility] Anion Gap 12 6 - 16 mmol/L 05/09/2025 8:24 PM [facility] Calcium 9.0 8.4 - 10.4 mg/dL 05/09/2025 8:24 PM [facility] BUN 9 7 - 26 mg/dL 05/09/2025 8:24 PM [facility] Creatinine 0.73 0.55 - 1.02 mg/dL 05/09/2025 8:24 PM [facility] Alkaline Phosphatase 57 40 - 150 U/L 05/09/2025 8:24 PM [facility] AST (SGOT) 27 16 - 46 U/L 05/09/2025 8:24 PM [facility] ALT (SGPT) 18 0 - 55 U/L 05/09/2025 8:24 PM [facility] Bilirubin, Total 0.2 0.2 - 1.2 mg/dL 05/09/2025 8:24 PM [facility] Protein, Total 7.4 6.4 - 8.3 g/dL 05/09/2025 8:24 PM [facility] Albumin 4.5 3.5 - 5.0 g/dL 05/09/2025 8:24 PM [facility] Glucose 72 70 - 100 mg/dL 05/09/2025 8:24 PM [facility] Comment:The given reference range is for the fasting state. Non-fasting reference range for glucose is 70 - 180 mg/dL. GFR, Estimated >60 >60 mL/min/1.7 3m2 05/09/2025 8:24 PM CDT [facility] Hours Fasting 0.1 8 - 12 Hours 05/09/2025 8:24 PM CDT [facility] Blood Venipuncture / Unknown 05/09/2025 4:56 PM CDT 05/09/2025 4:56 PM CDT Mark AVELARC LAB_1 Final Result Performing Organization Address City/[facility]/ZIP Co de Phone Number [facility] [address] [place] [address] * TSH (05/09/2025 4:56 PM CDT) Pathologist [facility] TSH, Sensitive 0.84 0.30 - 4.50 uIU/mL 05/09/2025 9:38 PM CDT [facility] Blood Venipuncture / Unknown 05/09/2025 4:56 PM CDT 05/09/2025 4:56 PM CDT Mark AVELARC LAB_1 Final Result Performing Organization Address [facility]/ZIP Co de Phone Number [facility] [address] [place] [address] * Ferritin (05/09/2025 4:56 PM CDT) Pathologist [facility] Ferritin 78 9 - 204 ng/mL 05/09/2025 9:39 PM CDT [facility] Blood Venipuncture / Unknown 05/09/2025 4:56 PM CDT 05/09/2025 4:56 PM CDT Mark AVELARC LAB_1 Final Result Performing Organization Address City/[facility]/ZIP Co de Phone Number [facility] [address] * C-Reactive Protein (05/09/2025 4:56 PM CDT) [facility] C-Reactive Protein <0.1 0.0 - 0.5 mg/dL 05/09/2025 8:24 PM CDT [facility] Blood Venipuncture / Unknown 05/09/2025 4:56 PM CDT 05/09/2025 4:56 PM CDT Mark Robertson PA-C LAB_1 Final Result Performing Organization Address [facility]/ZIP Co de Phone Number [facility] [address] [place] [address] * Iron Profile (Iron,TIBC,%Sat.(Calc)) (05/09/2025 4:56 PM CDT) [facility] Iron 78 50 - 170 mcg/dL 05/09/2025 10:35 PM CDT [facility] Transferrin 251 180 - 382 mg/dL 05/09/2025 10:35 PM CDT [facility] TIBC, Calculated 314 240 - 450 mcg/dL 05/09/2025 10:35 PM CDT [facility] % Saturation, Calculated 25 10 - 50 % 05/09/2025 10:35 PM CDT [facility] Blood Venipuncture / Unknown 05/09/2025 4:56 PM CDT 05/09/2025 4:56 PM CDT Mark Robertson PA-C LAB_1 Final Result Performing Organization Address City/[facility] Co de Phone Number [facility] [address] [place], [place] [phone] [place] [address] * HIV 1/2 Ag/Ab 4th Generation (01/14/2024 2:13 PM CDT) [facility] HIV 1/2 Antigen/Antib alba (4th generation) Negative (Non Reactive) Negative (Non Reactive) 01/14/2024 8:37 PM CDT [facility] Comment:HIV-1 p24 Antigen an d HIV-1/HIV-2 Antibody not detected Blood Venipuncture / Unknown 01/14/2024 2:13 PM CDT 01/14/2024 2:13 PM CDT Zaynab Redding MD LAB_1 Final Result Performing Organization Address [facility] de Phone Number [facility] [address] [place], [place] [id number] [place] [address] * Hepatitis C Antibody, with Reflex (01/14/2024 2:13 PM CDT) Hepatitis C Antibody Negative (Non Reactive) Negative (Non Reactive) 01/14/2024 8:37 PM CDT [facility] Comment:Antibodies to HCV no t detected. Does not exclude the possiblity of exposure to HCV. Blood Venipuncture / Unknown 01/14/2024 2:13 PM CDT 01/14/2024 2:13 PM CDT Zaynab Redding MD LAB_1 Final Result Performing Organization Address [facility] de Phone Number [facility] [address] [place], [place] [address] * PAP Test (05/12/2022 10:38 AM CDT) Case Report Pap Case: [id number] Authorizing Provider: Josey Richard MD Collected: 05/12/2022 1038 Ordering Location: [place] [address] Received: 05/12/2022 [facility] Obstetrics/Gynec ology First Screen: Meme Connor CT (ASCP) Specimen: Pap Test, Routine, Cervix/Endocervix 05/19/2022 2:27 PM CDT [facility] Pap Specimen Adequacy Satisfactory for evaluation, endocervical/machado sformation zone component present. 05/19/2022 2:27 PM CDT [facility] Pap Interpretation (NILM) Negative for intraepithelial lesion or malignancy. 05/19/2022 2:27 PM CDT [facility] at 1427 CDT Pap Disclaimer The Pap test is a screening test designed to aid in the detection of cervical cancer and its precursor lesions. It is not a diagnostic procedure and should not be used as the sole means of detecting cervical cancer. Both false-positive and false-negative results may occur. 05/19/2022 2:27 PM CDT [facility] Gross Description The specimen is received in SurePath fixative and properly labeled. 1 Pap-stained SurePath slide is prepared. 05/19/2022 2:27 PM CDT [facility] Embedded Images 2:27 PM CDT [facility] Other Specimen Type ENTIRE ENDOCERVIX / Unknown 05/12/2022 10:38 AM CDT 05/12/2022 12:55 PM CDT Comment:LMP: Patient's last menstrual period was 06/17/2021 (exact date). us Josey Richard MD LAB PATHOLOGY Final Result [facility] [address] * Chlamydia and GC, Urine STD (10/21/2021 12:45 PM CONDUCTOR FREIGHT) Chlamydia Trachomatis STD Not Detected Not Detected 10/22/2021 9:06 AM CONDUCTOR FREIGHT [facility] N. gonorrhoeae STD Not Detected Not Detected 10/22/2021 9:06 AM CONDUCTOR FREIGHT [facility] Urine STD (Urine for STD) Non-blood Collection / Unknown 10/21/2021 12:45 PM CONDUCTOR FREIGHT 10/21/2021 12:45 PM CONDUCTOR FREIGHT Narrative [facility] - 10/22/2021 9:06 AM CONDUCTOR FREIGHT Test performed by [employer] Dies Mediated Amplification (TMA). us Josey Richard MD LAB_1 Final Result Performing Organization Address City/[facility]/ZIP Co de Phone Number [facility] [address] [phone] from Last 3 Months or Most Recently Relevant to Health Maintenance Insurance [facility] Care Teams Ingredient Scaler Helper Relationship Specialty Start Date End Date Rick Correia MD [address] [place] [address] PCP - General Internal Medicine 10/21/21
--- OUTSIDE RECORDS SUMMARY | 2025-05-30 12:15 | XMS_ITS | Patient Health Record ---
Author Organization [employer] Address [address] [place] [address] Care Team Providers Care Goat Farmer Name Role Phone Rick Correia Primary Care Provider Daisy Maloney [phone] Allergies No Known Allergies Reason For Referral [...] Status W/U Status Risk Notes Problem Anxiety (88211897) Anxiety (F41.9) Active confirmed Problem Encounter for supervision of normal in multigravida in first trimester (Z34.81) Active confirmed Plan Of Treatment No Information Insurance Providers Payer Name Payer Address Payer Phone Subscriber Number Group Number Insured Name Patient Relationship to Insured Coverage Start Date Coverage End Date [facility] (Ins. Bill) Claims Department [address] [place] [address] [id number] Patty Fuentes Self - patient is the insured Medical (General) History Medical History History ICD Code Migraines Depression/Anxiety Ovarian Cysts Uterine Fibroids Surgical History Surgery Date(Month/Year) Tonsils Removal 2001 D&C 2019 D&C 2020 [place] Tooth Removal 2022
--- NOTE | 2025-05-30 12:16 | CRLHL7_ITS ---
For Patients: As a result of the Century Cures Act, medical imaging exams and procedure reports are released immediately into your electronic medical record. You may view this report before your referring provider. If you have questions, please contact your health care provider. INDICATION: Acute stroke, numbness on the right side of the head and arm, lightheadedness. TECHNIQUE: CTA head with contrast bolus tracking, 3D angiographic rendering using maximum intensity projection (MIP) and images permanently archived. FINDINGS/IMPRESSION: The examination is limited due to marked motion artifact. No obvious acute abnormality is identified. Please note that all CT scans at this facility use dose modulation, iterative reconstruction, and/or weight-based dosing when appropriate to reduce radiation dose to as low as reasonably achievable. Dictated by Bora Bingham MD @ 05/30/2025 3:40:30 PM (Electronically Signed)
--- NOTE | 2025-05-30 12:16 | CRLHL7_ITS ---
For Patients: As a result of the Century Cures Act, medical imaging exams and procedure reports are released immediately into your electronic medical record. You may view this report before your referring provider. If you have questions, please contact your health care provider. INDICATION: Acute stroke, numbness on the right side of the head and arm, lightheadedness. TECHNIQUE: CTA neck with contrast bolus tracking, 3D angiographic rendering using maximum intensity projection (MIP) and images permanently archived. FINDINGS: There is no significant carotid artery stenosis or dissection. There is no significant vertebral artery stenosis or dissection. The soft tissues of the neck are within normal limits. The cervical spine is in normal alignment. IMPRESSION: Unremarkable neck CTA. No significant carotid or vertebral artery stenosis or dissection. Please note that all CT scans at this facility use dose modulation, iterative reconstruction, and/or weight-based dosing when appropriate to reduce radiation dose to as low as reasonably achievable. Dictated by Bora Bingham MD @ 05/30/2025 3:41:24 PM (Electronically Signed)
--- NOTE | 2025-05-30 12:16 | CRLHL7_ITS ---
For Patients: As a result of the Century Cures Act, medical imaging exams and procedure reports are released immediately into your electronic medical record. You may view this report before your referring provider. If you have questions, please contact your health care provider. INDICATION: Right-sided numbness, lightheaded TECHNIQUE: CT head without contrast. COMPARISON: None. FINDINGS: CSF spaces: Within normal limits for age. Brain parenchyma: The villa-white differentiation is normal. No sign of mass, hemorrhage, or midline shift. Skull base and calvarium: Trace sinus mucosal thickening. The visualized orbits are grossly unremarkable. No skull fractures. IMPRESSION: Unremarkable noncontrast head CT. Please note that all CT scans at this facility use dose modulation, iterative reconstruction, and/or weight-based dosing when appropriate to reduce radiation dose to as low as reasonably achievable. Dictated by Gordo Meraz MD @ 05/30/2025 12:59:07 PM (Electronically Signed)
[2025-05-30 12:23] VITALS: BP 123/73; PULSE 83; RESP 18; TEMP 37; O2SAT 99; BMI 19.3
[2025-05-30 12:36] LABS: Hematocrit 37.8 % (33.0-51.0); Hemoglobin* 12.7 gm/dL (12.0-16.0); Immature Granulocytes Abs Auto 0.00 K/uL (0.00-0.30); Immature Granulocytes Pct Auto 0.0 %; Mean Corpuscular HGB Conc 34 gm/dL (32-36); Mean Corpuscular Hemoglobin 29 pg (26-34); Mean Corpuscular Volume 87 fL (80-100); RDW Coefficient of Variation % 12.5 % (11.5-15.5); Red Blood Count 4.34 m/uL (4.00-5.20); White Blood Count* 6.97 K/uL (4.50-11.00)
[2025-05-30 12:41] LABS: Lymphocytes Absolute Auto 1.10 K/uL (0.90-2.90); Slide Review Reflex No
--- NOTE | 2025-05-30 12:45 | CRLHL7_ITS ---
For Patients: As a result of the Century Cures Act, medical imaging exams and procedure reports are released immediately into your electronic medical record. You may view this report before your referring provider. If you have questions, please contact your health care provider. INDICATION: Left upper extremity and facial paresthesias. TECHNIQUE: Multisequence multiplanar MRI of the brain without the use of intravenous contrast. COMPARISON: Correlated with CT from earlier the same day 05/30/2025. FINDINGS: No evidence of acute ischemia. Normal signal intensity of the brain parenchyma. The ventricles are normal in size. Flow voids of the larger intracranial arteries are preserved. Normal calvarial bone marrow signal intensity. Unremarkable orbits. The paranasal sinuses and mastoid air cells are predominantly clear. IMPRESSION: Unremarkable non-contrast MRI of the brain. Dictated by Lance Baird MD @ 05/30/2025 2:03:17 PM (Electronically Signed)
[2025-05-30 12:50] LABS: Chloride* 107 mmol/L (96-114); Potassium* 3.8 mmol/L (3.6-5.1); Sodium* 136 mmol/L (135-149)
[2025-05-30 12:52] LABS: Blood Urea Nitrogen* 12 mg/dL (5-24); Creatinine* 0.9 mg/dL (0.5-1.5); Est. Creatinine Clearance* 72.65; Estimated Glomerular Filt Rate 89 ml/min; INR 0.96 (0.91-1.10); Prothrombin Time 13.6 Seconds
[2025-05-30 12:53] LABS: Anion Gap 6 mEq/L (7-15); Calcium* 8.9 mg/dL (8.4-10.6); Carbon Dioxide* 23 mmol/L (20-32); Glucose* 99 mg/dL (60-115)
--- NOTE | 2025-05-30 12:54 | ED_ITS ---
HPI - General Adult General Date Seen: 05/30/25 Chief complaint: Unspecified Complaint, Adult Stated complaint: stroke symptoms Time Seen by Provider: 05/30/25 12:16 Source: patient and EMS Mode of arrival: EMS Limitations: no limitations History of Present Illness HPI narrative: Patient is a 29-year-old female presenting to the emergency department for sudden onset right arm numbness and facial numbness. She states reflecting fever rather via FaceTime she suddenly felt her right-sided face and arm going numb. She states the felt heavy also. Symptoms are not improving right away and seen the calling EMS. EMS arrived her symptoms were starting to improve but she still has the tingling sensation in her arm. She describes it as a she has a full arm sleeve on whenever you touch her. Still has some heaviness to the arm. She does vape but does no other drugs or having occasional THC gummies at night for sleep. Does state her mom had a heart attack at age 31 and a mini-stroke in her early 40s. States her mother is a heavy smoker. Also says her dad had a heart attack in his early 40s. No falling disorder since her family that she is aware of. Does state her heart rate and blood pressure up. To baseline but does admit to feeling anxious. Denies fevers, chills, chest pain, shortness of breath, abdominal pain, headache, vision changes. Does have a history of migraines but denies a headache at this time. Related Data Home Medications ?Medication ?Instructions ?Recorded ?Confirmed buspirone 5 mg tablet mg 11/25/24 escitalopram oxalate 20 mg tablet mg DAILY 11/25/24 lisdexamfetamine 30 mg capsule mg QAM 11/25/24 (Vyvanse) Allergies Allergy/AdvReac Type Severity Reaction Status Date / Time No Known Drug Allergies Allergy Verified 05/30/25 12:25 Review of Systems Status of ROS: Reports: 10 or more systems reviewed and unremarkable except as noted in History and below [facility] Medical History Anxiety and depression ?F41.9 - Anxiety disorder, unspecified (ICD-10) ?F32.A - Depression, unspecified (ICD-10) ADHD, adult residual type ?F90.8 - Attention-deficit hyperactivity disorder, other type (ICD-10) Surgical History H/O dilation and curettage ?Z98.890 - Other specified postprocedural states (ICD-10) Social History Smoking Status: Never smoker Do you use any of these nicotine containing products: None How often do you have a drink containing alcohol: never AUDIT-C Alcohol total score: 0 Non-prescribed substance use: denies use service: No Exam Narrative: Exam Narrative: Const: Well-nourished, Well-developed, in mild distress Eyes: PERRL, no conjunctival injection, and symmetrical lids HENT: Atraumatic external nose and ears. Moist mucous membranes. Neck: Symmetric, trachea midline, No thyromegaly. CVS: RRR, No murmurs or gallops. Peripheral pulses 2+ and equal in all extremities RESP: Unlabored respiratory effort. Clear to auscultation bilaterally. GI: Nontender/Nondistended, No rebound or guarding. MSK:Extremities w/o deformity, Normal Active ROM Skin: Warm, Dry. No rashes or lesions. Neuro: Normal Muscle tone, Cranial nerves 2-12 grossly intact, normal [id number], normal [id number]-[id number], normal gait, normal strength 5/5 upper lower extremities bilaterally, normal sensation upper and lower extremities bilaterally, normal rapid alternating movements. NIH SS 1 Psych: Awake, Alert, & Oriented x3. Appropriate mood and affect. Const: Vital Signs, click to edit/add: Vital Signs - 24 hr 05/30/25 12:23 Temperature 98.6 F Pulse Rate [Right Pulse Oximeter] 83 Respiratory Rate 18 Blood Pressure [Le ft Upper Arm] 123/73 Pulse Oximetry 99 Oxygen Delivery Me thod Room Air Course Vital Signs Vital signs: Initial Vital Signs Temperature 98.6 F 05/30/25 12:23 Temperature Source Temporal Artery Scan 05/30/25 12:23 Pulse Rate 83 05/30/25 12:23 Pulse Rhythm Regular 05/30/25 12:23 Pulse Strength 3+ Normal 05/30/25 12:23 Respiratory Rate 18 05/30/25 12:23 Blood Pressure 123/73 05/30/25 12:23 Blood Pressure Mean 89 05/30/25 12:23 Pulse Oximetry 99 05/30/25 12:23 Oxygen Delivery Method Room Air 05/30/25 12:23 Vital Signs Temperature 98.6 F 05/30/25 12:23 Pulse Rate 83 05/30/25 12:23 Respiratory Rate 18 05/30/25 12:23 Blood Pressure 123/73 05/30/25 12:23 Pulse Oximetry 99 05/30/25 12:23 Oxygen Delivery Method Room Air 05/30/25 12:23 Temperature 98.6 F 05/30/25 12:23 Pulse Rate 83 05/30/25 12:23 Respiratory Rate 18 05/30/25 12:23 Blood Pressure 123/73 05/30/25 12:23 Pulse Oximetry 99 05/30/25 12:23 Oxygen Delivery Method Room Air 05/30/25 12:23 Medical Decision Making MDM Narrative Medical decision making narrative: Patient is a 29-year-old female presenting to emergency department for right- sided arm and facial numbness. While considering her age for concern for stroke is relatively low she does vape and has has a family history of early of MIs and strokes. NIH stroke scale was 1. Rest of her neuro exam was completely normal. I did end up calling the code stroke and I spoke to Dr. Jarrell. He states that stroke is unlikely and she just needs an MRI. With the numbness and acute onset I did also some acute for possible dissection so I did end up doing CT and CTA also. Also check a CBC, BMP, magnesium, EKG, troponin, coags. Lab work returned showing no concerning abnormalities. Imaging returned showing no concerning abnormalities as reviewed by myself and the radiologist. EKG shows no concerning abnormalities. Symptoms have improved at this time. I do believe she is safe for discharge. Cannot say for certain what caused her symptoms with seems very unlikely to be stroke related. She states it felt like symptoms she gets with her migraine but without the headache. Lab Data Labs: Lab Results 05/30/25 Range/Units 12:25 WBC 6.97 (4.50-11.00) K/uL RBC 4.34 (4.00-5.20) m/uL Hgb 12.7 (12.0-16.0) gm/dL Hct 37.8 (33.0-51.0) % MCV 87 (80-100) fL MCH 29 (26-34) pg MCHC 34 (32-36) gm/dL RDW Coeff of Lyndsey 12.5 (11.5-15.5) % Plt Count 208 (140-440) K/uL Neut % (Auto) 78.1 H (42.0-72.0) % Lymph % (Auto) 15.6 L (20-44) % [place] % (Auto) 5.9 (0.0-11.0) % Eos % (Auto) 0.1 (0.0-7.0) % Baso % (Auto) 0.3 (0.0-3.0) % Neut # (Auto) 5.40 (1.7-7.0) K/uL Lymph # (Auto) 1.10 (0.90-2.90) K/uL [place] # (Auto) 0.40 (0.00-0.90) K/UL Eos # (Auto) 0.01 (0.00-0.50) K/uL Baso # (Auto) 0.02 (0.00-0.30) K/uL Abs Immat Gran (auto) 0.00 (0.00-0.30) K/uL Imm/Tot Granulo (auto) 0.0 % INR 0.96 (0.91-1.10) APTT 31 (23-33) Seconds Sodium 136 (135-149) mmol/L Potassium 3.8 (3.6-5.1) mmol/L Chloride 107 (96-114) mmol/L Carbon Dioxide 23 (20-32) mmol/L Anion Gap 6 L (7-15) mEq/L BUN 12 (5-24) mg/dL Creatinine 0.9 (0.5-1.5) mg/dL Estimated Creat Clear 72.65 Estimated GFR 89 ml/min Glucose 99 (60-115) mg/dL Calcium 8.9 (8.4-10.6) mg/dL Magnesium 1.8 (1.5-2.6) mg/dL Troponin I < 0.01 (0.01-0.04) ng/mL POC Troponin I Cancelled Imaging Data CT scan - head: Attestation: I have reviewed the pertinent imaging results. Radiologist's impression: Unremarkable noncontrast head CT. Please note that all CT scans at this facility use dose modulation, iterative reconstruction, and/or weight-based dosing when appropriate to reduce radiation dose to as low as reasonably achievable. Dictated by Gordo Meraz MD @ 05/30/2025 12:59:07 PM CTA head and neck: Attestation: I have reviewed the pertinent imaging results. Radiologist's impression: Preliminary Report: Comparison: Head CT 05/30/2025 Impression: CTA HEAD: 1. Head CTA is degraded by patient motion on the examination, especially near the level of the [id number] and mid to distal basilar level. 2. No gross stenosis within the posterior circulation. More limited evaluation of the proximal posterior cerebral arteries with left likely arising through a posterior communicating artery branch. 3. No gross stenosis within the anterior circulation. 4. Dural venous sinuses grossly patent. CTA NECK: 1. No hemodynamically significant extracranial carotid or vertebral stenosis. MR Brain: Attestation: I have reviewed the pertinent imaging results. Radiologist's impression: Unremarkable non-contrast MRI of the brain. Dictated by Lance Baird MD @ 05/30/2025 2:03:17 PM ECG Data Attestation: I personally reviewed and interpreted this ECG as follows: Prior ECG tracings: not available for review Interpretation: Normal sinus rhythm with a rate of fever P minute, normal intervals, normal axis, no ST or T-wave abnormalities. Discharge Plan Discharge Clinical Impression: Arm paresthesia, right Patient Disposition: Home, Self-Care Condition: Improved Instructions: Paresthesia (ED) Additional Instructions: Follow-up with your primary care provider. Return for new worsening symptoms. Prescriptions: No Action buspirone 5 mg tablet Patient Comments: [NO ORIGINAL SIG] escitalopram oxalate 20 mg tablet DAILY lisdexamfetamine [Vyvanse] 30 mg capsule QAM Follow Up/Referrals: Provider,Not a Local [Primary Care Provider, Family Practice] Stand Alone Forms: [email or web address] Info Instructions
== END 2025-05-30 16:38 | disposition home or self-care (01) ==
PROVIDERS: Emergency Provider Student in an Organized Health Care Education/Training Program
DX: R20.2 Paresthesia of skin (principal)
CPT/HCPCS: 36415; 70450; 70496; 70498; 70551; 80048; 82962; 83735; 84484; 85025; 85610; 85730; 93005; 99284; 99285; Q9967